=== PATIENT | male | born 1940 | race Caucasian/White ===

== ENCOUNTER 2019-05-17 08:04 | Emergency (ER) | payer MEDICARE, BC ==
[~2019-05-17] VITALS: Ht 180.3 cm; Wt 97.3 kg
[~2019-05-17 08:04] MED LIST: ADV250INH INH; ASPI81CH49 PO; NITR0.4S SL; PLAV1TAB2 PO; PROP60CA PO; RANI-356 PO; SYNT137T7 PO; TYLE325T5 PO; ZETI10TA16 PO
--- NOTE | 2019-05-17 08:45 | REP ---
Right shoulder two views: I suspect a fracture at the humeral neck. Additionally, there is a large avulsion fragment at the humeral head laterally. No dislocation. Demineralization. Electronically Signed by Karson Moreno MD 05/17/2019 08:37 A
--- NOTE | 2019-05-17 08:47 | REP ---
Right elbow two views: I suspect a fracture at the base of the olecranon spur. There is adjacent soft tissue edema. Both views are oblique. No other fractures or dislocations are identified in the two views provided. Electronically Signed by Karson Moreno MD 05/17/2019 08:38 A
--- NOTE | 2019-05-17 08:48 | REP ---
Right humerus two views: There is an impacted fracture of the humeral head with a large a avulsion fragment laterally. No dislocation. Demineralization. Electronically Signed by Karson Moreno MD 05/17/2019 08:39 A
[2019-05-17] MEDS ORDERED: NORCO, ANEXSIA 5/325MG TABLET (HYDROcodone/ACETAMINOPHEN) PO ONE (09:15)
[2019-05-17] MEDS ORDERED: IPRA6SP INH (09:28)
[2019-05-17] MEDS ORDERED: TAMS1CAP17 PO (09:28)
[2019-05-17] MEDS ORDERED: PROP80CA PO (09:28)
[2019-05-17] MEDS ORDERED: NORC1TAB7 PO (10:05)
[2019-05-17] MEDS ORDERED: COLA100C5 PO (10:06)
[2019-05-17 10:19] VITALS: BP 121/71
== END 2019-05-17 10:23 | disposition home or self-care (01) ==
LOC: M ED 08:04
DX: S42.91XA Fracture of right shoulder girdle, part unspecified, initial encounter for closed fracture (principal); S52.024A Nondisplaced fracture of olecranon process without intraarticular extension of right ulna, initial encounter for closed fracture; W01.10XA Fall on same level from slipping, tripping and stumbling with subsequent striking against unspecified object, initial encounter; Y92.099 Unspecified place in other non-institutional residence as the place of occurrence of the external cause; Y93.89 Activity, other specified; Y99.9 Unspecified external cause status; Z95.5 Presence of coronary angioplasty implant and graft; E78.00 Pure hypercholesterolemia, unspecified; I10 Essential (primary) hypertension; E03.9 Hypothyroidism, unspecified; Z79.82 Long term (current) use of aspirin; Z79.899 Other long term (current) drug therapy

== ENCOUNTER → 2020-02-17 | Outpatient (REF) | payer MEDICARE, BC, OTHER ==
[~2020-02-17] MED LIST changes: +COLA100C5 PO; +IPRA6SP INH; +NORC1TAB7 PO; +PROP80CA PO; -RANI-356 PO; +RANI-397 PO; +TAMS1CAP17 PO
[2020-04-07 07:33] LABS: ALBUMIN 3.57 GM/DL (3.29-5.55); ALPHA-1-GLOBULIN % 3.7 % (2.9-4.9); ALPHA-1-GLOBULINS 0.26 GM/DL (0.17-0.41); ALPHA-2-GLOBULINS 0.81 GM/DL (0.42-0.99); ALPHA-2-GLOBULINS % 11.5 % (7.1-11.8); BETA-1-GLOBULINS 1.73 GM/DL (0.28-0.60); BETA-1-GLOBULINS % 24.7 % (4.7-7.2); BETA-2-GLOBULINS 0.27 GM/DL (0.19-0.55); BETA-2-GLOBULINS % 3.9 % (3.2-6.5); GAMMA GLOBULIN % 5.2 % (11.1-18.8); GAMMA GLOBULINS 0.36 GM/DL (0.65-1.58)
== END ==
LOC: M LAB REF 10:44
PROVIDERS: ATTEND Internal Medicine
DX: R93.7 Abnormal findings on diagnostic imaging of other parts of musculoskeletal system (principal)

== ENCOUNTER → 2020-12-08 | Outpatient (REF) | payer MEDICARE, BC, OTHER ==
[2020-12-08 13:13] LABS: IMMUNOGLOBULIN G 1500 MG/DL (681-1648); IMMUNOGLOBULIN M 25.7 MG/DL (40-230); TOTAL PROTEIN 6.8 GM/DL (6.4-8.2)
[2020-12-09 13:43] LABS: ALBUMIN 3.35 GM/DL (3.29-5.55); ALBUMIN % 49.2 % (55.8-66.1); ALPHA-1-GLOBULIN % 3.8 % (2.9-4.9); ALPHA-1-GLOBULINS 0.26 GM/DL (0.17-0.41); ALPHA-2-GLOBULINS 0.78 GM/DL (0.42-0.99); ALPHA-2-GLOBULINS % 11.5 % (7.1-11.8); BETA-1-GLOBULINS 1.79 GM/DL (0.28-0.60); BETA-1-GLOBULINS % 26.3 % (4.7-7.2); BETA-2-GLOBULINS 0.26 GM/DL (0.19-0.55); BETA-2-GLOBULINS % 3.8 % (3.2-6.5); GAMMA GLOBULIN % 5.4 % (11.1-18.8); GAMMA GLOBULINS 0.37 GM/DL (0.65-1.58)
[2020-12-09 13:58] LABS: IMMUNOTYPING SERUM IGG ABNORMAL (NORMAL); IMMUNOTYPING SERUM KAPPA ABNORMAL (NORMAL)
== END ==
LOC: M LAB REF 11:32
PROVIDERS: ATTEND Internal Medicine
DX: D47.2 Monoclonal gammopathy (principal)

== ENCOUNTER → 2020-12-29 | Outpatient (CLI) | payer MEDICARE, BC ==
[~2020-12-29] MED LIST changes: +E-Z-GAS II EFFERVESCENT PACKET (SODIUM BICARB./CITRIC ACID/SIMETHICONE) As Ordered ONE; +E-Z-HD 98% w/w 340GM SUSP BTL As Ordered ONE; +E-Z-PAQUE 96% w/w SUSP 176GM BTL As Ordered ONE
--- NOTE | 2020-12-29 09:28 | REP ---
INDICATION: DYSPHAGIA COMPARISON: Comparison carotid sonography May 10, 2018.. TECHNIQUE: Real-time ultrasound evaluation and duplex Doppler interrogation of the extracranial carotid vasculature is performed. FINDINGS: Antegrade flow is observed in both vertebral arteries. Right carotid: The right common carotid artery shows diffuse intimal thickening but is otherwise unremarkable. There moderate mixed plaquing in the right carotid bulb and proximal ICA on two-dimensional scanning. Color flow and spectral Doppler interrogation are unremarkable on the right. Velocity chart right carotid: Right CCA PSV: 42 cm/S Right ICA PSV: 99 cm/S Right ICA EDV: 24 cm/S Right ECA PSV: 53 cm/S Right ICA/CCA ratio: 2.4 Left carotid: The left common carotid artery shows diffuse intimal thickening but is otherwise unremarkable. There is moderate mixed plaquing in the left carotid bulb and proximal ICA on two-dimensional scanning. Color flow and spectral Doppler interrogation are unremarkable on the left. Velocity chart left carotid: Left CCA PSV: 70 cm/S Left ICA PSV: 74 cm/S Left ICA EDV: 25 cm/S Left ECA PSV: 77 cm/S Left ICA/CCA ratio: 1.1 IMPRESSION: Less than 50% category narrowing in the right internal carotid artery by Doppler velocity criteria. Moderate mixed plaquing. Less than 50% category narrowing in the left ICA by Doppler velocity criteria. Moderate mixed plaquing. Doppler velocities have not increased significantly since the prior study. <Electronically signed by Jsutin Yu > 12/29/20 0968
--- NOTE | 2020-12-29 13:59 | REP ---
INDICATION: Dysphagia. COMPARISON: Upper GI dated 06/16/2017. TECHNIQUE: This procedure was performed by Sena Deluna [facility], under the direct supervision of Dr. Araya. Images were reviewed with Dr. Araya prior to dictation. Liquid barium and gas producing crystals were given in the erect position, as well as liquid barium in the prone oblique position in order to perform a double contrast esophagram examination. FINDINGS: A single view PA chest x-ray is submitted as a fisher eel spear film. The superior mediastinal structures are midline. The heart size is within normal limits. The lungs are clear. The oral and pharyngeal stages of deglutition were unremarkable. Esophageal transport is prompt and efficient, however 2 in fro motility as well as tertiary contractions were visualized multiple times during the exam. There is no evidence of stricture, or mucosal ring. There is no evidence of a hiatal hernia. There was no gastroesophageal reflux noted . IMPRESSION: Presbyesophagus. 0.6 minutes of fluoroscopy time was utilized for this procedure. Some fluoroscopic images are performed with last image hold technology. These images require no additional radiation. <Electronically signed by Sena Deluna > 12/29/20 1241 <Electronically signed by Karson Araya > 12/29/20 [id number]
== END ==
LOC: M RAD 08:29
PROVIDERS: ATTEND Internal Medicine
DX: I65.23 Occlusion and stenosis of bilateral carotid arteries (principal); R13.10 Dysphagia, unspecified; K22.8 Other specified diseases of esophagus

== ENCOUNTER → 2021-04-09 | Outpatient (CLI) | payer MEDICARE, BC ==
[~2021-04-09] MED LIST changes: +BARIUM SULFATE 700 MG TABLET (E-Z-DISK) As Ordered ONE; -E-Z-GAS II EFFERVESCENT PACKET (SODIUM BICARB./CITRIC ACID/SIMETHICONE) As Ordered ONE; -E-Z-HD 98% w/w 340GM SUSP BTL As Ordered ONE; +VARIBAR NECTAR 40% w/v 240ML SUSP BTL As Ordered ONE; +VARIBAR PUDDING 40% w/v 230ML TUBE As Ordered ONE
--- NOTE | 2021-04-09 14:57 | REP ---
INDICATION: R13.10 DYSPHASIA. COMPARISON: None. TECHNIQUE: The procedure was performed by Sena Deluna, [facility], under the direct supervision of Dr. Yu. The procedure was performed with Henrietta Lin from speech pathology present. 5 ml aliquots of thin, pudding, mixed fruit, soft food, hard food and pill consistency barium was administered. FINDINGS: Flash penetration was visualized with thin consistency barium. Again noted was some to and fro motility of the distal esophagus. The detailed report of this examination will be provided by speech pathology. IMPRESSION: Flash penetration with thin consistency barium. A complete report will be provided by speech pathology. Presbyesophagus. 2.2 minutes of fluoroscopy time was utilized for this procedure. Some fluoroscopic images are performed with last image hold technology. These images require no additional radiation <Electronically signed by Sena Deluna > 04/09/21 1224 <Electronically signed by Justin Yu > 04/09/21 8622
== END ==
LOC: M RAD 10:58
PROVIDERS: ATTEND Physician Assistant Medical
DX: R13.10 Dysphagia, unspecified (principal)

== ENCOUNTER → 2021-04-22 | Outpatient (CLI) | payer MEDICARE, BC ==
[~2021-04-22] MED LIST changes: -BARIUM SULFATE 700 MG TABLET (E-Z-DISK) As Ordered ONE; +BREO1INH3; -E-Z-PAQUE 96% w/w SUSP 176GM BTL As Ordered ONE; +FAMO1TAB11; -VARIBAR NECTAR 40% w/v 240ML SUSP BTL As Ordered ONE; -VARIBAR PUDDING 40% w/v 230ML TUBE As Ordered ONE
== END ==
LOC: M LABSMTC 10:16
PROVIDERS: ATTEND Anesthesiology
DX: Z01.812 Encounter for preprocedural laboratory examination (principal); Z20.822 Contact with and (suspected) exposure to COVID-19

== ENCOUNTER 2021-04-27 09:03 | Day surgery (SDC) | payer MEDICARE, BC ==
[~2021-04-27] VITALS: Ht 177.8 cm; Wt 93.9 kg
[~2021-04-27 09:03] MED LIST changes: +LIDOCAINE 2% 100MG/5ML SDV (FOR ANES.) As Ordered ONE; +NS 1,000 ML IV ONE; +fentaNYL 100 MCG/2 ML INJECTION (J3010) As Ordered ONE; +propofoL 200 MG/20 ML VIAL As Ordered ONE
--- OUTSIDE RECORDS SUMMARY | 2021-04-27 09:08 | CCD | Continuity of Care Document ---
Author Author Jamey Reddy MD Organization Unknown Address [address] [address] Phone [phone] Care Team Providers Care Physiological Chemist Name Role Phone giovana Todd MD AUT[facility] [phone] Socrates Reddy JR, MD [facility] Unavailable Rufus Head MD AUTM [phone] [facility] AUTM [phone] [facility] AUTM [phone] Deandre Dawkins DPBarbara AUTM [phone] Problems Active Problems Provider Date Coronary arteriosclerosis Socrates Reddy MD Onset: 05/30 Benign essential hypertension Socrates Reddy MD Onset: 07/30/2010 Hypothyroidism Socrates Reddy MD Onset: 05/30/2011 Abnormal glucose level Socrates Reddy MD Onset: 05/30/20 11 Pure hypercholesterolemia Socrates Reddy MD Onset: 05/30 Essential tremor Socrates Reddy MD Onset: 05/30/2011 Gastroesophageal reflux disease Socrates Reddy MD Onset: 05/30/2011 Essential hypertension Socrates Reddy MD Onset: 05/11/20 15 Essential tremor Socrates Reddy MD Onset: 05/11/2015 Social History Type Date Description Comments Sex Unknown ETOH Use Occasionally consumes beer Tobacco Use Start: Unknown End: Unknown Patient is a former smoker SMOKED FOR 30YRS 1 ITALIA A DAY Allergies, Adverse Reactions, Alerts Active Allergies Reaction Severity Comments Date Lipitor,Pravachol.Lescol,Crestor 05/14/2010 Singulair heart issues per pt 05/15/20 12 Dulera sores in mouth /even rinsed 10/22/2013 Mysoline 11/29/2019 Medications Active Medications SIG Qnty Indications Ordering Provide r Date Tamsulosin HCL 0.4mg Capsules Take 1 Capsule Daily 90caps Meli Roy DO 06/23/2020 Synthroid 150mcg Tablets Take 1 Tablet Daily 90tabs Socrates Reddy MD 06/01/2020 Nitroglycerin 0.4mg Tablets Sub Dissolve 1 Tablet Under Thetongue as Needed For Chest Pain 25tabs Socrates Reddy MD 04/09/2020 Ezetimibe 10mg Tablets take 1 tablet daily 90tabs Socrates Reddy MD 05/19/2019 Ipratropium Nikolai 0.06% Solution use 2 sprays in each nostril 3-4 times daily as needed 45ml Socrates Reddy MD 11/23/2018 Shingrix 50mcg/0.5ML Suspension Re c administer 0.5 milliliters intramuscular, repeat in 2 to 6 months 2units Socrates Reddy MD 11/23/2018 Propranolol HCL ER 80mg Caps ER 24 HR take 1 capsule daily 90caps Socrates Reddy MD 10/10/2018 Breo Ellipta 200-25mcg/Inh Aerosol 1 inhalation daily 90units Socrates Reddy MD 7 Aspirin 81mg Chewtabs 1 po qd Socrates Reddy MD 06/08/2012 Medications Administered in Office Medication SIG Qnty Indications Ordering Provider Date Covid-19 vaccine, Unspecified Inj ection Unknown 08/29/2020 Covid-19 vaccine, Unspecified Inj ection Unknown 08/08/2020 Administration Of Flu Vaccine Inj ectrenetta Reddy MD 05/20/2019 Administration Of Flu Vaccine Inj ection Socrates Reddy MD 05/04/2018 Administration Of Flu Vaccine Inj ection Socrates Reddy MD 05/16/2017 Administration Of Flu Vaccine Inj lula Reddy MD 05/16/2016 Administration Of Flu Vaccine Inj lula Reddy MD 05/11/2015 Administration Of Flu Vaccine Inj lula Reddy MD 05/15/2014 Administration Of Flu Vaccine Inj ection Socrates Deleong,MD 05/07/2013 Administration Of Flu Vaccine Inj lula Reddy MD 04/20/2012 Administration Of Flu Vaccine Inj lula Reddy MD 05/30/2011 Immunizations CPT Code Status Date Vaccine Lot # [id number] Given 05/20/2019 Influenza Vaccin e Quadrivalent Preser/Antibiotic Free Im Use [id number] Given 05/04/2018 Influenza Virus Vaccine, Quadrivalent ([id number]), Derived From 0 Given 05/16/2017 Influenza Vaccin e Quadrivalent Preser/Antibiotic Free Im Use [id number] Q2037 Given 05/16/2016 Fluvirin Virus Vaccine [id number] 01 Q2037 Given 05/11/2015 Fluvirin Virus Vaccine 45628 01 57750 Given 10/20/2014 Prevnar 13 [id number] Q2037 Given 05/15/2014 Fluvirin Virus Vaccine 65857 01 Q2037 Given 05/07/2013 Fluvirin Virus Vaccine [id number] 01 Q2037 Given 04/20/2012 Fluvirin Virus Vaccine 13814 Given 04/20/2012 Zoster Vaccine Q2037 Given 05/30/2011 Fluvirin Virus Vaccine 21304 Given 2010 Pneumovax 23 [id number] Refused 11/23/2018 Tetanus/Diptheria(Td)Toxoids Preservative Free Vital Signs Date Vital Result Comment 12/09/2020 10:22am BP Systolic 130 mmHg BP Diastolic 70 mmHg Height 68 inches 5'8" Weight 216.25 lb BMI (Body Mass Index) 32.9 kg/m2 06/01/2020 2:09pm BP Systolic 105 mmHg BP Diastolic 58 mmHg Heart Rate 56 /min Height 68 inches 5'8" Weight 221.00 lb BMI (Body Mass Index) 33.6 kg/m2 Results Test Acquired Date Facility Test Result H/L Range Note Serum Protein Electrophoresis 12/08/2020 [facility] [address] [place] [address] [phone] Albumin % 49.2 % Low 55.8-66.1 Hnlkf-4-Pwfmmces % 3.8 % Normal 2.9-4.9 Uiehf-9-Sbwdzvupe % 11.5 % Normal 7.1-11.8 Zjva-0-Mlhakqiyx % 26.3 % High 4.7-7.2 Fcye-6-Ytztyfdwu % 3.8 % Normal 3.2-6.5 Gamma Globulin % 5.4 % Low 11.1-18.8 Albumin 3.35 GM/DL Normal 3.29-5.55 Oxlxj-5-Znjskymns 0.26 GM/DL Normal 0.17-0.41 Fctht-2-Adglovsqr 0.78 GM/DL Normal 0.42-0.99 Zvug-7-Iunfsybpc 1.79 GM/DL High 0.28-0.60 Fpfp-0-Ltjtfkllf 0.26 GM/DL Normal 0.19-0.55 Gamma Globulins 0.37 GM/DL Low 0.65-1.58 Total Protein 6.8 GM/DL Normal 6.4-8.2 Spep Interpretation SEE COMMENT Normal 1 Spep Pathologist Review REV'D BY Xavier CHÁVEZ <SEE NOTE> Normal 2 Immunoglobulin G,A,M 12/08/2020 [facility] enter [address] [place] [phone] Immunoglobulin A 101.0 mg/dL Normal 70-400 Immunoglobulin G 1500 mg/dL Normal [phone] Immunoglobulin M 25.7 mg/dL Low 40-230 Immunotyping (Immunofixation) Serum (If 12/08/[address] [address] [phone] Immunotyping Serum Igg ABNORMAL High Normal Immunotyping Serum Crescent ABNORMAL High Normal It Serum Interpretation SEE COMMENT Normal 3 Its Pathologist Review REV'D BY Xavier CHÁVEZ <SEE NOTE> Normal 4 Complete Blood Count 12/08/2020 [facility], [place] Brand Analyst: [place] [address] [phone] WBC 6.4 x10*3/UL 4.1 - 10.9 RBC 4.29 x10*6/UL 4.20 - 6.30 Hemoglobin 14.0 g/dL 12.0 - 18.0 Hematocrit 40.9 % 37.0 - 51.0 MCV 95.2 fL 80.0 - 97.0 MCH 32.7 pg High 26.0 - 32.0 MCHC 34.4 g/dL 31.0 - 38.0 RDW 13.4 % 11.6 - 13.7 PLT 268 x10*3/UL 140 - 440 MPV 8.4 FL 7.8 - 11.0 Lymph % 22.9 % 10.0 - 58.5 Mid % 5.5 % 1.7 - 9.3 Neut % 71.6 % 37.0 - 92.0 Lymph # 1.4 x10*3/UL 0.6 - 4.1 Mid # 0.4 x10*3/UL 0.1 - 0.6 Neut # 4.6 x10*3/UL 2.0 - 7.8 Comprehensive Chem Profile 12/08/2020 [facility], Brand Analyst: [place] [address] [phone] Glucose 92 mg/dL 74 - 99 5 BUN 17 mg/dL 7 - 18 Creatinine 0.9 mg/dL 0.6 - 1.3 Sodium 142 mEq/L 136 - 145 Potassium 4.8 mEq/L 3.5 - 5.1 Chloride 106 mEq/L 98 - 107 Carbon Dioxide 29 mEq/L 21 - 32 Calcium 8.6 mg/dL 8.5 - 10.1 Alk. Phosphatase 103 mg/dL 46 - 116 Total Bilirubin 0.2 mg/dL 0.2 - 1.0 Ast (Sgot) 18 U/L 15 - 37 Alt (SGPT) 28 U/L 12 - 78 Albumin 2.9 g/dL Low 3.4 - 5.0 6 Total Protein 6.5 g/dL 6.4 - 8.2 A/G Ratio 0.81 CALC Low 1.00 - 1.90 GFR >= 60 mL/min >60 GFR >= 60 mL/min >60 7 Laboratory test finding 12/08/2020 [facility], Brand Analyst: [place] [address] [phone] Thyroid Stimulating Hormone 1.24 uIU/mL 0.3 6 - 3.74 Lipid Profile 12/08/2020 [facility] , Brand Analyst: [place] [address] [phone] Cholesterol 181 mg/dL 131 - 200 Triglycerides 152 mg/dL High 30 - 150 HDL Cholesterol 27 mg/dL Low 35 - 60 LDL (Calculated) 124 CALC 50 - 159 1 M-SPIKE NOTED IN BETA 1 GRAEME ON. CONCENTRATION = 1.66 GM/DL 2 REV'D BY Xavier CHAMBERS 3 MONOCLONAL IGG KAPPA 4 REV'D BY Xavier CHAMBERS 5 100-125 mg/dL PRE-DIABET ES/FASTING >126 mg/dL DIABETES/FASTING 6 NOTE: RESULT VERIFIED. 7 CHRONIC KIDNEY DISEASE STAGI NG PER NKF STAGE I & II GFR >= 60 NORMAL TO MILDLY DECREASED STAGE III GFR 30-59 MODERATELY DECREASED STAGE IV GFR 15-29 SEVERELY DECREASED STAGE V GFR <15 VERY LITTLE GFR LEFT ESRD GFR <15 ON STORE FACILITY TECHNICIAN Procedures Date Code Description Status 12/09/2020 66662 Office/Outpatient Established Mo d MDM 30-39 Min Completed 08/13/2008 [id number] Colonoscopy Completed Medical Devices Description No Information Available Encounters Type Date Location Provider Dx Diagnosis Office Visit 12/09/2020 10:40a [facility] 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 I65.23 Occlusion and stenosis of bi lateral carotid arteries D47.2 Monoclonal gammopathy R13.10 Dysphagia, unspecified E66.09 Other obesity due to excess calories Z68.32 Body mass index [BMI] 32.0-3 2.9, adult Z13.89 Encounter for screening for other disorder Assessments Date Code Description Provider 12/09/2020 I10 Essential (primary) hypertension Socrates Reddy MD 12/09/2020 R73.09 Other abnormal glucose Socrates Reddy MD 12/09/2020 E03.9 Hypothyroidism, unspecified Elizabeth esha Reddy MD 12/09/2020 G25.0 Essential tremor Socrates carter MD 12/09/2020 I25.10 Atherosclerotic heart disease of [place] coronary artery with Socrates Reddy MD 12/09/2020 Z95.818 Presence of other cardiac implan ts and grafts Socrates Reddy MD 12/09/2020 I65.23 Occlusion and stenosis of bilate ral carotid arteries Socrates Reddy MD 12/09/2020 D47.2 Monoclonal gammopathy Socrates Reddy MD 12/09/2020 R13.10 Dysphagia, unspecified Socrates Reddy MD 12/09/2020 E66.09 Other obesity due to excess lesly rain Socrates Reddy MD 12/09/2020 Z68.32 Body mass index [BMI] 32.0-32.9, adult Socrates Reddy MD 12/09/2020 Z13.89 Encounter for screening for othe r disorder Socrates Reddy MD 12/08/2020 D47.2 Monoclonal gammopathy Socrates Reddy MD 12/08/2020 D47.2 Monoclonal gammopathy Lab [facility] 12/08/2020 I10 Essential (primary) hypertension Socrates Reddy MD 12/08/2020 I10 Essential (primary) hypertension Lab Schedule 12/08/2020 E78.00 Pure hypercholesterolemia, unspe cified Socrates Reddy MD 12/08/2020 E78.00 Pure hypercholesterolemia, unspe cified Lab Schedule 12/08/2020 E03.9 Hypothyroidism, unspecified Elizabeth esha Reddy MD 12/08/2020 E03.9 Hypothyroidism, unspecified Lab Schedule Plan of Treatment Future Appointment(s):* 06/15/2021 7:40 am - Lab Schedule at [facility] * 06/16/2021 8:20 am - Socrates Reddy MD at [facility] 06/01/2020 - Socrates Reddy MD* I10 Essential (primary) hypertension* Comments:* Hypertension at J[facility]-8 guidelines * R73.09 Other abnormal glucose * E03.9 Hypothyroidism, unspecified * G25.0 Essential tremor * I25.10 Atherosclerotic heart disease of [place] coronary artery with * Z95.818 Presence of other cardiac implants and grafts * I65.23 Occlusion and stenosis of bilateral carotid arteries * D47.2 Monoclonal gammopathy * All * New Medication:* Synthroid 150 mcg - Take 1 Tablet Daily * Synthroid 25 mcg - 1 by mouth every day Functional Status Description No Information Available Mental Status Description No Information Available Referrals Refer to Reason for Referral Status Appt Date Yazan Pickard MD CONSULT FOR SCREENING EGD DX: SOLID [place] D DYSPHAGIA Scheduled 03/19/2021 [facility] Medical Practice [address] [id number] [phone]
--- OUTSIDE RECORDS SUMMARY | 2021-04-27 09:08 | CCD | Continuity of Care Document ---
Author Author Jamey [facility]ERO [facility] Organization Unknown Address [address] [place] [address], [address] [place] [address] Phone [phone] Care Team Providers Care Petroleum Production Engineer Name Role Phone Socrates Reddy MD @ [facility] Int AUTM Problems Active Problems Provider Date Chronic rhinitis Jesse Ha MD Onset: 11/04/2013 Chronic pansinusitis Jesse Ha MD Onset: 11/04/2013 Benign paroxysmal positional vertigo Jesse Ha MD Ons et: 09/19/2014 Refractory migraine Jesse Ha MD Onset: 09/19/2014 Sensorineural hearing loss, bilateral Jesse Ha MD On set: 09/19/2014 Social History Type Date Description Comments Sex Unknown ETOH Use 2 A Month Tobacco Use Start: Unknown End: Unknown Patient is a former smoker Allergies, Adverse Reactions, Alerts Active Allergies Criticality Reaction | Severity Comments Date Lipitor Unable to assess criticality 02/19/2021 Pravachol Unable to assess criticality 02/19/2021 Lescol Unable to assess criticality 02/19/2021 Crestor Unable to assess criticality 02/19/2021 Singulair Unable to assess criticality 02/19/2021 Dulera Unable to assess criticality 02/19/2021 Inactive Allergies NKDA Unable to assess criticality 10/29/2013 Medications Active Medications SIG Qnty Indications Ordering Provide r Date Famotidine 20mg Tablets take 1 tab by mouth twice daily for heartburn 60tabs K21.9 Yazan Pickard MD 03/19/2021 Synthroid 150mcg Tablets 1 po qd 30tabs Unknown Propranolol HCL ER 80mg Caps ER 24 HR 1 po bid 90caps Unknown Aspir-Low 81mg Tablets DR lanette mayer Unknown Tamsulosin HCL 0.4mg Capsules 1 by mouth every day Unknown Ezetimibe 10mg Tablets 1 by mouth every day Unknown Multivitamin Tablets 1 by mouth every day Unknown Breo Ellipta 200-25mcg/Inh Aerosol inhale one puff by mouth every day Unknown Tums 500mg Chewtabs 1 tab by mouth as needed Unknown Immunizations Description No Information Available Vital Signs Date Vital Result Comment 03/19/2021 9:30am BP Systolic 132 mmHg BP Diastolic 82 mmHg Height 70 inches 5'10" Weight 207.00 lb BMI (Body Mass Index) 29.7 kg/m2 [place] Body Weight 166 lb Weight 93.895 kg BSA (Body Surface Area) 2.12 m2 09/19/2014 8:09am BP Systolic 142 mmHg BP Diastolic 82 mmHg Heart Rate 56 /min Height 71 inches 5'11" Weight 209.00 lb BMI (Body Mass Index) 29.1 kg/m2 [place] Body Weight 172 lb Weight 94.802 kg BSA (Body Surface Area) 2.15 m2 Results Description No Information Available Procedures Date Code Description Status 03/19/2021 [address]321 Office/Outpatient New Moderate M DM 45-59 Minutes Completed Medical Devices Description No Information Available Encounters Type Date Location Provider Dx Diagnosis Office Visit 03/19/2021 9:30a [facility] ctice ISAI Robert K21.9 Gastro-esophageal reflux dis ease without esophagitis R13.10 Dysphagia, unspecified Assessments Date Code Description Provider 03/19/2021 K21.9 Gastro-esophageal reflux disease without esophagitis ISAI Robert 03/19/2021 R13.10 Dysphagia, unspecified ISAI Robert Plan of Treatment Future Appointment(s):* 05/10/2021 10:00 am - ISAI Robert at [facility] * 04/27/2021 10:05 am - Marvel Meyer M.D. at [facility] 03/19/2021 - Leydi A Charlebois, RPA-C* K21.9 Gastro-esophageal reflux disease without esophagitis * R13.10 Dysphagia, unspecified * * New Medication:* Famotidine 20 mg * New Orders:* Endoscopy with possible dilation, Ordered: 03/19/21 * Comments:* Will arrange for upper endoscopy and possible dilation. Reviewed risks and benefits of the procedure, as well as other options, with the patient. Prep for this procedure was discussed with patient. Patient verbalized understanding of all of the above and is in agreement to proceed. Patient will seek medical attention for any acute changes. Will monitor. * Follow up:* 2 weeks after procedure, sooner if needed. Functional Status Description No Information Available Mental Status Description No Information Available Referrals Refer to Dr Reason for Referral Status Appt Date Marvel Meyer M.D. DYSPHAGIA Scheduled 03/19 [facility] [address] [facility], [address] [place] [id number] [phone]
--- OUTSIDE RECORDS SUMMARY | 2021-04-27 09:08 | CCD ---
Author Author [facility] Organization [facility] Address Unknown Phone Unavailable Care Team Providers Care [place] Auditor Name Role Phone Rodriguez, Dorothea ORDNANCE EQUIPMENT WORKER Unavailable Unavailable Rodriguez, Dorothea ORDNANCE EQUIPMENT WORKER Unavailable Unavailable Rodriguez, Dorothea ORDNANCE EQUIPMENT WORKER Unavailable Unavailable Rodriguez, Dorothea ORDNANCE EQUIPMENT WORKER Unavailable Unavailable Rodriguez, Dorothea ORDNANCE EQUIPMENT WORKER Unavailable Unavailable Rodriguez, Dorothea ORDNANCE EQUIPMENT WORKER Unavailable Unavailable Rodriguez, Dorothea ORDNANCE EQUIPMENT WORKER Unavailable Unavailable Rodriguez, Dorothea ORDNANCE EQUIPMENT WORKER Unavailable Unavailable Rodriguez, Dorothea ORDNANCE EQUIPMENT WORKER Unavailable Unavailable Rodriguez, Dorothea ORDNANCE EQUIPMENT WORKER Unavailable Unavailable Rodriguez, Dorothea ORDNANCE EQUIPMENT WORKER Unavailable Unavailable Rodriguez, Dorothea ORDNANCE EQUIPMENT WORKER Unavailable Unavailable Rodriguez, Dorothea ORDNANCE EQUIPMENT WORKER Unavailable Unavailable Charlebois, A Leydi RPA C Unavailable Unavailable Charlebois, A Leydi RPA C Unavailable Unavailable Charlebois, A Leydi RPA C Unavailable Unavailable Charlebois, A Leydi RPA C Unavailable Unavailable Charlebois, A Leydi RPA C Unavailable Unavailable Charlebois, A Leydi RPA C Unavailable Unavailable Charlebois, A Leydi RPA C Unavailable Unavailable Charlebois, A Leydi RPA C Unavailable Unavailable Charlebois, A Leydi RPA C Unavailable Unavailable Charlebois, A Leydi RPA C Unavailable Unavailable Charlebois, A Leydi RPA C Unavailable Unavailable Charlebois, A Leydi RPA C Unavailable Unavailable Charlebois, A Leydi RPA C Unavailable Unavailable Charlebois, A Leydi RPA C Unavailable Unavailable Charlebois, A Leydi RPA C Unavailable Unavailable Charlebois, A Leydi RPA C Unavailable Unavailable Charlebois, A Leydi RPA C Unavailable Unavailable Charlebois, A Leydi RPA C Unavailable Unavailable Charlebois, A Leydi RPA C Unavailable Unavailable Charlebois, A Leydi RPA C Unavailable Unavailable Charlebois, A Leydi RPA C Unavailable Unavailable Charlebois, A Leydi RPA C Unavailable Unavailable Charlebois, A Leydi RPA C Unavailable Unavailable Charlebois, A Leydi RPA C Unavailable Unavailable Charlebois, A Leydi RPA C Unavailable Unavailable Charlebois, A Leydi RPA C Unavailable Unavailable Charlebois, A Leydi RPA C Unavailable Unavailable Charlebois, A Leydi RPA C Unavailable Unavailable Charlebois, A Leydi RPA C Unavailable Unavailable Charlebois, A Leydi RPA C Unavailable Unavailable Charlebois, A Leydi RPA C Unavailable Unavailable Charlebois, A Leydi RPA C Unavailable Unavailable Charlebois, A Leydi RPA C Unavailable Unavailable PICKERAL JR, J CARISSA PA-C Unavailable Unavailable PICKERAL JR, J CARISSA PA-C Unavailable Unavailable PICKERAL JR, J CARISSA PA-C Unavailable Unavailable PICKERAL JR, J CARISSA PA-C Unavailable Unavailable PICKERAL JR, J CARISSA PA-C Unavailable Unavailable PICKERAL JR, J CARISSA PA-C Unavailable Unavailable PICKERAL JR, J CARISSA PA-C Unavailable Unavailable PICKERAL JR, J CARISSA PA-C Unavailable Unavailable PICKERAL JR, J CARISSA PA-C Unavailable Unavailable PICKERAL JR, J CARISSA PA-C Unavailable Unavailable PICKERAL JR, J CARISSA PA-C Unavailable Unavailable PICKERAL JR, J CARISSA PA-C Unavailable Unavailable PICKERAL JR, J CARISSA PA-C Unavailable Unavailable PICKERAL JR, J CARISSA PA-C Unavailable Unavailable PICKERAL JR, J CARISSA PA-C Unavailable Unavailable PICKERAL JR, J CARISSA PA-C Unavailable Unavailable PICKERAL JR, J CARISSA PA-C Unavailable Unavailable PICKERAL JR, J CARISSA PA-C Unavailable Unavailable PICKERAL JR, J CARISSA PA-C Unavailable Unavailable PICKERAL JR, J CARISSA PA-C Unavailable Unavailable PICKERAL JR, J CARISSA PA-C Unavailable Unavailable PICKERAL JR, J CARISSA PA-C Unavailable Unavailable PICKERAL JR, J CARISSA PA-C Unavailable Unavailable PICKERAL JR, J CARISSA PA-C Unavailable Unavailable PICKERAL JR, J CARISSA PA-C Unavailable Unavailable PICKERAL JR, J CARISSA PA-C Unavailable Unavailable PICKERAL JR, J CARISSA PA-C Unavailable Unavailable Rancho MirageMitchel MD Unavailable Unavailable Rancho MirageMitchel MD Unavailable Unavailable Rancho MirageMitchel MD Unavailable Unavailable Rancho MirageMitchel MD Unavailable Unavailable BarryMitchel MD Unavailable Unavailable Rancho MirageMitchel MD Unavailable Unavailable Rancho MirageMitchel MD Unavailable Unavailable Rancho MirageMitchel MD Unavailable Unavailable BarryMitchel MD Unavailable Unavailable BarryMitchel MD Unavailable Unavailable BarryMitchel MD Unavailable Unavailable BarryMitchel MD Unavailable Unavailable Rancho MirageMitchel MD Unavailable Unavailable BarryMitchel MD Unavailable Unavailable Rancho MirageMitchel MD Unavailable Unavailable BarryMitchel MD Unavailable Unavailable Rancho MirageMitchel MD Unavailable Unavailable BarryMitchel MD Unavailable Unavailable Rancho MirageMitchel MD Unavailable Unavailable BarryMitchel MD Unavailable Unavailable BarryMitchel MD Unavailable Unavailable BarryMitchel MD Unavailable Unavailable Rancho MirageMitchel MD Unavailable Unavailable BarryMitchel MD Unavailable Unavailable BarryMitchel MD Unavailable Unavailable Rancho MirageMitchel MD Unavailable Unavailable BarryMitchel MD Unavailable Unavailable BarryMitchel MD Unavailable Unavailable Rancho MirageMitchel MD Unavailable Unavailable BarryMitchel MD Unavailable Unavailable Rancho MirageMitchel MD Unavailable Unavailable BarryMitchel MD Unavailable Unavailable BarryMitchel MD Unavailable Unavailable BarryMitchel MD Unavailable Unavailable Rancho MirageMitchel MD Unavailable Unavailable BarryMitchel MD Unavailable Unavailable Rancho MirageMitchel MD Unavailable Unavailable Rancho MirageMitchel MD Unavailable Unavailable Rancho MirageMitchel MD Unavailable Unavailable BarryMitchel MD Unavailable Unavailable Rancho MirageMitchel MD Unavailable Unavailable Rancho MirageMitchel MD Unavailable Unavailable BarryMitchel MD Unavailable Unavailable BarryMitchel MD Unavailable Unavailable BarryMitchel MD Unavailable Unavailable BarryMitchel MD Unavailable Unavailable Rancho MirageMitchel MD Unavailable Unavailable BarryMitchel MD Unavailable Unavailable BarryMitchel MD Unavailable Unavailable BarryMitchel MD Unavailable Unavailable Rancho MirageMitchel MD Unavailable Unavailable Rancho MirageMitchel MD Unavailable Unavailable Rancho MirageMitchel MD Unavailable Unavailable [place], F Crowell MD Unavailable Unavailable Barry, F Crowell MD Unavailable Unavailable Barry, F Crowell MD Unavailable Unavailable Barry, F Crowell MD Unavailable Unavailable Barry, F Crowell MD Unavailable Unavailable [place], F Crowell MD Unavailable Unavailable [place], F Crowell MD Unavailable Unavailable Barry, F Crowell MD Unavailable Unavailable [place], F Crowell MD Unavailable Unavailable [place], F Crowell MD Unavailable Unavailable [place], F Crowell MD Unavailable Unavailable Barry, F Crowell MD Unavailable Unavailable Barry, F Crowell MD Unavailable Unavailable [place], F Crowell MD Unavailable Unavailable Barry, F Crowell MD Unavailable Unavailable [place], F Crowell MD Unavailable Unavailable Barry, F Crowell MD Unavailable Unavailable [place], F Crowell MD Unavailable Unavailable Barry, F Crowell MD Unavailable Unavailable Barry, F Crowell MD Unavailable Unavailable [place], F Crowell MD Unavailable Unavailable [place], F Crowell MD Unavailable Unavailable [place], F Crowell MD Unavailable Unavailable [place], F Crowell MD Unavailable Unavailable [place], F Crowell MD Unavailable Unavailable [place], F Crowell MD Unavailable Unavailable Barry, F Crowell MD Unavailable Unavailable Barry, F Crowell MD Unavailable Unavailable Barry, F Crowell MD Unavailable Unavailable Barry, F Crowell MD Unavailable Unavailable [place], F Crowell MD Unavailable Unavailable [place], F Crowell MD Unavailable Unavailable [place], F Crowell MD Unavailable Unavailable Re-disclosure Warning The records that you are about to access may contain information from federally-assisted alcohol or drug abuse programs. If such information is present, then the following federally mandated warning applies: This information has been disclosed to you from records protected by federal confidentiality rules (42 CFR part 2). The federal rules prohibit you from making any further disclosure of this information unless further disclosure is expressly permitted by the written consent of the person to whom it pertains or as otherwise permitted by 42 CFR part 2. A general authorization for the release of medical or other information is NOT sufficient for this purpose. The Federal rules restrict any use of the information to criminally investigate or prosecute any alcohol or drug abuse patient.The records that you are about to access may contain highly sensitive health information, the redisclosure of which is protected by Article 27-F of the [place] State Public Health law. If you continue you may have access to information: Regarding HIV / AIDS; Provided by facilities licensed or operated by the [facility] Office of Mental Health; or Provided by the [facility] Office for People With Developmental Disabilities. If such information is present, then the following [facility] mandated warning applies: This information has been disclosed to you from confidential records which are protected by state law. State law prohibits you from making any further disclosure of this information without the specific written consent of the person to whom it pertains, or as otherwise permitted by law. Any unauthorized further disclosure in violation of state law may result in a fine or correction sentence or both. A general authorization for the release of medical or other information is NOT sufficient authorization for further disc losure. Allergies and Adverse Reactions Type Description Substance Reaction Status Data Source(s ) Drug Allergy Drug Allergy NKDA [facility] ([facility], ) Family History Family Member Name Family Member Gender Family Member Status Date o f Status Description Data Source(s) Unknown Male Problem [facility] ([facility] Unknown Female Encounters Encounter Providers Location Date Indications Data Source(s ) Outpatient Attender: Leydi Fofana/Dilcia/Clotilde middleton/Neeraj 03/19/2021 09:30:00 AM EDT [facility] ([facility], ) Outpatient Attender: Socrates Donovan 0 12/09/2020 10:40:00 AM EDT [facility] ([facility] ) Outpatient Attender: Dorothea jeter 06/25/2020 08:30:00 AM EST [facility] ([facility] Outpatient Attender: Socrates Donovan 1 08/01/2019 01:00:00 PM EST [facility] ([facility] ) Outpatient Attender: CARISSA Donovan 0 03/17/2020 08:20:00 AM EDT [facility] ([facility] ) Immunizations Vaccine Date Status Description Data Source(s) COVID-19 VACC, MRNA(PFIZER)/PF 04/23/2021 12:00:00 AM EDT completed [facility] COVID-19 VACCINE Pfizer 04/23/2021 12:00:00 AM EDT completed [facility] Vaccine Series Complete: YESThis Data wa s Submitted to [facility] [employer]. COVID-19 VACCINE Pfizer 08/29/2020 12:00:00 AM EST completed [facility] Vaccine Series Complete: YESThis Data wa s Submitted to [facility] [employer]. COVID-19 VACCINE, MRNA, [id number], LNP-S (PFIZER)/PF 08/29/19 12:00:00 AM EST completed [facility] COVID-19 VACCINE Pfizer 08/08/2020 12:00:00 AM EST completed [facility] Vaccine Series Complete: NOThis Data was Submitted to [facility] [employer]. COVID-19 VACCINE, MRNA, [id number], LNP-S (PFIZER)/PF 08/08/19 12:00:00 AM EST completed [facility] Medications Medication Brand Name Start Date Product Form Dose Route Admi nistrative Instructions Pharmacy Instructions Status Indications Reaction Description Data Source(s) Famotidine 20 MG Oral Tablet Famotidine 03/19/2021 12:00:00 AM EDT ORAL active [facility] ([facility], ) ciclopirox 80 MG/ML Topical Solution Ciclopirox 10/27/2020 12:00:00 A M EDT active [facility] ([facility] Covid-19 vaccine, Unspecified 08/29/2020 12:00:00 AM EST completed [facility] Medication administered onsite Covid-19 vaccine, Unspecified 08/08/2020 12:00:00 AM EST completed [facility] Medication administered onsite Tamsulosin hydrochloride 0.4 MG Oral Capsule Tamsulosin HCL 06/23/2020 12:00:00 AM EST active [facility] Levothyroxine Sodium 0.025 MG Oral Tablet [Synthroid] Synthr oid 06/01/2020 12:00:00 AM EST ORAL active M [facility] ([facility]) Levothyroxine Sodium 0.15 MG Oral Tablet [Synthroid] Synthro id 06/01/2020 12:00:00 AM EST active M [facility] ([facility]) Nitroglycerin 0.4 MG Sublingual Tablet Nitroglycerin 0 12:00:00 AM EDT active [facility] ( [facility]) Insurance Providers Payer name Policy type / Coverage type Policy ID Covered constitution party ID Covered constitution party's relationship to obrien Policy Obrien Plan Information Utilities [place] [employer] Compensation [id number] Self [id number] [place] [place] B [id number] Self [id number] [place] [place] B [id number] Self X [id number] Medicare Natl Govt Servic Medicare Primary [id number] Self 0 [id number] [employer] BCBS [id number] Janeen XXP [id number] MEDICARE [id number] Janeen [id number] A Medicare Natl Govt Servic Medicare Primary [id number] Self 6 [id number] MEDICARE [id number] SP [id number] [id number] MEDICARE [id number] SP [id number] A Medicare Natl Govt Servic Medicare Primary [id number] Self 6 [id number] Medicare Natl Govt Servic Medicare Primary [id number] Self 6 [id number] BLUE CARD 1 [id number] 1 [id number] MEDICARE C [id number] S [id number] A [employer] o Health Maintenance Organization (HMO) [id number] Self X [id number] BS [facility] [id number] 00 [id number] Self X [id number] 00 [employer] Ppo Health Maintenance Organization (HMO) [id number] Self X [id number] BS [facility] [id number] 00 [id number] Self X [id number] 00 BC/BS Of [facility] Part B [id number] Self Medicare [place] Primary [id number] Self BC OUT OF STATE 1 [id number] 1 [id number] CIGNA-IND INACTIVE 2 [id number] 1 0 [id number] BCBS OF [place] 200/700 [id number] SP [id number] SELF PAY 5 UNAVAILABLE 1 UNAVAILA BLE BCBS [place] 200/700 [id number] SP [id number] OTHER WORKERS COMPENSATION [id number] SP [id number] MEDICARE C [id number] S [id number] [employer] BCBS B [id number] S XXP [id number] BCBS [place] 200/700 [id number] SP [id number] Medicare Medicare Primary [id number] Self [id number] [employer] Ppo Health Maintenance Organization (HMO) [id number] Self X [id number] BS [facility] [id number] 00 [id number] Self X [id number] 00 [employer] Ppo Health Maintenance Organization ([facility]) [id number] Self X [id number] [facility] Commercial [id number] 00 [id number] Self X [id number] 00 Medicare Medicare Primary [id number] Self [id number] Problems, Conditions, and Diagnoses No Information Surgeries/Procedures Procedure Description Date Indications Data Source(s) OFFICE OUTPATIENT NEW 45 MINUTES 03/19/2021 12:00:00 A M EDT [facility] ([facility], ) DEBRIDEMENT NAIL ANY METHOD 03/16/2021 12:00:00 AM EDT [facility] ([facility] DEBRIDEMENT NAIL ANY METHOD 01/05/2021 12:00:00 AM EDT [facility] ([facility] OFFICE OUTPATIENT VISIT 25 MINUTES 12/09/2020 12:00:00 AM EDT [facility] ([facility] DEBRIDEMENT NAIL ANY METHOD 10/27/2020 12:00:00 AM EDT [facility] ([facility] DEBRIDEMENT NAIL ANY METHOD 05/27/2020 12:00:00 AM EST [facility] ([facility] DEBRIDEMENT NAIL ANY METHOD 03/18/2020 12:00:00 AM EDT [facility] ([facility] Results ID Date Data Source [id number] 12/08/2020 07:55:00 AM EDT [facility] ([facility] Name Value Range Interpretation Code Description Data Paula rce(s) Supporting Document(s) Immunotyping Serum Igg Laboratory test result [facility] ([facility]) It Serum Interpretation Laboratory test result [facility] ([facility]) MONOCLONAL IGG KAPPA Immunotyping Serum Athelstan Laboratory test result [facility] ([facility]) Laboratory test finding (navigational concept) Laboratory test result [facility] ([facility]) REV'D BY Xavier CHAMBERS ID Date Data Source [id number] 12/08/2020 07:55:00 AM EDT [facility] ([facility]) Name Value Range Interpretation Code Description Data Paula rce(s) Supporting Document(s) Immunoglobulin A 101.0 mg/dL 70-400 [facility] ([facility]) Immunoglobulin G 1500 mg/dL [id number] [facility] ([facility]) Immunoglobulin M 25.7 mg/dL 40-230 [facility] ([facility]) ID Date Data Source [id number] 12/08/2020 07:55:00 AM EDT [facility] ([facility]) Name Value Range Interpretation Code Description Data Paula rce(s) Supporting Document(s) Albumin % 49.2 % 55.8-66.1 [facility]) Bfqlg-9-Rvmyvqxr % 3.8 % 2.9-4.9 [facility] ([facility]) Fcpv-2-Fzuavauxe % 26.3 % 4.7-7.2 [facility] ([facility]) Lygdp-7-Ytwpmtnma % 11.5 % 7.1-11.8 [facility] ([facility]) Hktb-7-Upswmnfgy % 3.8 % 3.2-6.5 [facility] ([facility]) Gamma Globulin % 5.4 % 11.1-18.8 [facility] ([facility]) Ylydo-7-Tojaufhqo 0.26 GM/DL 0.17-0.41 [facility] ([facility]) Albumin 3.35 GM/DL 3.29-5.55 [facility] Oopqi-7-Yhnonbhfq 0.78 GM/DL 0.42-0.99 [facility] ([facility]) Pffc-1-Byxwzonon 1.79 GM/DL 0.28-0.60 [facility] ([facility]) Vkmw-7-Qcfvagyus 0.26 GM/DL 0.19-0.55 [facility] ([facility]) Gamma Globulins 0.37 GM/DL 0.65-1.58 [facility] ([facility]) Total Protein 6.8 GM/DL 6.4-8.2 [facility] ([facility]) Laboratory test finding (navigational concept) Laboratory test result [facility] ([facility]) REV'D BY Xavier Whitfield Interpretation Laboratory test result [facility] ([facility]) M-SPIKE NOTED IN BETA 1 REGION. CONCENTRATION = 1.66 GM/DL ID Date Data Source [id number] 12/08/2020 07:55:00 AM EDT [facility] ([facility]) Name Value Range Interpretation Code Description Data Paula rce(s) Supporting Document(s) Protein Fractions [Interpretation] in Serum or Plasma by Immunofixation Laboratory test result [facility] ([facility]) ID Date Data Source [id number] 12/08/2020 07:52:00 AM EDT [facility] ([facility]) Name Value Range Interpretation Code Description Data Paula rce(s) Supporting Document(s) Cholesterol [Mass/volume] in Serum or Plasma 181 mg/dL 131-200 [facility] ([facility]) Triglyceride [Mass/volume] in Serum or Plasma 152 mg/dL 30-150 [facility] ([facility]) Cholesterol in HDL [Mass/volume] in Serum or Plasma 27 mg/dL 35-60 [facility] ([facility]) Cholesterol in LDL [Mass/volume] in Serum or Plasma by calcu lation 124 CALC 50-159 [facility] ([facility]) ID Date Data Source [id number] 12/08/2020 07:52:00 AM EDT [facility] ([facility]) Name Value Range Interpretation Code Description Data Paula rce(s) Supporting Document(s) Thyrotropin [Units/volume] in Serum or Plasma by Detec tion limit <= 0.05 mIU/L 1.24 uIU/mL 0.36-3.74 [facility] ([facility] ) ID Date Data Source [id number] 12/08/2020 07:52:00 AM EDT [facility] ([facility]) Name Value Range Interpretation Code Description Data Paula rce(s) Supporting Document(s) Glucose [Mass/volume] in Serum or Plasma 92 mg/dL 74-99 [facility] ([facility]) 100-125 mg/dL PRE-DIABETES/FASTING >126 mg/dL DIABETES/FASTING Urea nitrogen [Mass/volume] in Serum or Plasma 17 mg/dL 7-18 [facility] ([facility]) Creatinine 0.9 mg/dL 0.6-1.3 [facility] ([facility]) Sodium [Moles/volume] in Serum or Plasma 142 meq/L 136-145 [facility] ([facility]) Chloride [Moles/volume] in Serum or Plasma 106 meq/L 98-107 [facility] ([facility]) Potassium [Moles/volume] in Serum or Plasma 4.8 meq/L 3.5-5.1 [facility] ([facility]) Carbon dioxide, total [Moles/volume] in Serum or Plasma 29 meq/L 21 -32 [facility] ([facility]) Calcium [Mass/volume] in Serum or Plasma 8.6 mg/dL 8.5-10.1 [facility] ([facility]) Alkaline phosphatase isoenzyme [Units/volume] in Serum or Pl asma 103 mg/dL 46-116 [facility] ([facility]) Total Bilirubin 0.2 mg/dL 0.2-1.0 [facility] ([facility]) Aspartate aminotransferase [Enzymatic activity/volume] in Serum or Plasma 18 U/L 15-37 [facility] ([facility] ) Alanine aminotransferase [Enzymatic activity/volume] in Seru m or Plasma 28 U/L 12-78 [facility] ([facility]) Albumin [Mass/volume] in Serum or Plasma 2.9 g/dL 3.4-5.0 [facility] ([facility]) NOTE: RESULT VERIFIED. A/G Ratio 0.81 CALC 1.00-1.90 [facility] Proteinase 3 Ab [Units/volume] in Serum 6.5 g/dL 6.4-8.2 [facility] ([facility]) Glomerular filtration rate/1.73 sq M pre dicted among non-blacks [Volume Rate/Area] in Serum or Plasma by Creatinine-based formula (MDRD) [facility] Glomerular filtration rate/1.73 sq M pre dicted among blacks [Volume Rate/Area] in Serum or Plasma by Creatinine-based formula (MDRD) Laboratory test result [facility] <content>CHRONIC KIDNEY DISEASE STAGING PER NKF</content>
<content></content>
<content>STAGE I & II GFR >= 60 NORMAL TO MILDLY DECREASED</content>
<content>STAGE III GFR 30-59 MODERATELY DECREASED</content>
<content>STAGE IV GFR 15-29 SEVERELY DECREASED</content>
<content>STAGE V GFR <15 VERY LITTLE GFR LEFT</content>
<content>ESRD GFR <15 ON CAMERA PROTOTYPING ENGINEER</content>
<content></content> ID Date Data Source [id number] 12/08/2020 07:52:00 AM EDT [facility] Name Value Range Interpretation Code Description Data Paula rce(s) Supporting Document(s) Leukocytes [#/volume] in Blood by Automated count 6.4 x10*3/UL 4.1-10 .9 [facility] Erythrocytes [#/volume] in Blood by Automated count 4.29 x10*6/UL 4.2 0-6.30 [facility] Hemoglobin [Mass/volume] in Blood 14.0 g/dL 12.0-18.0 [facility] ([facility]) Hematocrit [Volume Fraction] of Blood by Automated count 40.9 % 3 7.0-51.0 [facility] MCV 95.2 fL 80.0-97.0 [facility] MCH 32.7 pg 26.0-32.0 [facility] [facility]) MCHC 34.4 g/dL 31.0-38.0 [facility] ([facility]) Erythrocyte distribution width [Ratio] by Automated count 13.4 % 11.6-13.7 [facility] ([facility]) Platelets [#/volume] in Blood by Automated count 268 x10*3/UL 140-440 [facility] ([facility]) MPV 8.4 FL 7.8-11.0 [facility]) Lymph % 22.9 % 10.0-58.5 [facility]) Neut % 71.6 % 37.0-92.0 [facility] Mid % 5.5 % 1.7-9.3 [facility] Mid # 0.4 x10*3/UL 0.1-0.6 [facility] ([facility]) Lymph # 1.4 x10*3/UL 0.6-4.1 [facility] ([facility]) Neut # 4.6 x10*3/UL 2.0-7.8 [facility] ([facility]) ID Date Data Source [id number] 06/25/2020 12:00:00 AM EST [facility] Name Value Range Interpretation Code Description Data Paula rce(s) Supporting Document(s) SARS coronavirus 2 Ag [facility] This lab was ordered by [facility] and reported by [facility]. ID Date Data Source [id number] 06/01/2020 08:10:00 AM EST [facility] ([facility]) Name Value Range Interpretation Code Description Data Paula rce(s) Supporting Document(s) Thyroxine (T4) free [Mass/volume] in Serum or Plasma 0.88 ng/dL 0.76- 1.46 [facility] ([facility]) ID Date Data Source [id number] 06/01/2020 08:09:00 AM EST [facility] ([facility]) Name Value Range Interpretation Code Description Data Paula rce(s) Supporting Document(s) Thyrotropin [Units/volume] in Serum or Plasma by Detec tion limit <= 0.05 mIU/L 8.84 uIU/mL 0.36-3.74 [facility] ([facility] ) ID Date Data Source [id number] 06/01/2020 08:09:00 AM EST [facility] ([facility]) Name Value Range Interpretation Code Description Data Paula rce(s) Supporting Document(s) Triglyceride [Mass/volume] in Serum or Plasma 165 mg/dL 30-150 [facility] ([facility]) Cholesterol [Mass/volume] in Serum or Plasma 203 mg/dL 131-200 [facility] ([facility]) Cholesterol in HDL [Mass/volume] in Serum or Plasma 31 mg/dL 35-60 [facility] ([facility]) Cholesterol in LDL [Mass/volume] in Serum or Plasma by calcu lation 139 CALC 50-159 [facility] ([facility]) ID Date Data Source [id number] 06/01/2020 08:09:00 AM EST [facility] ([facility]) Name Value Range Interpretation Code Description Data Paula rce(s) Supporting Document(s) Urea nitrogen [Mass/volume] in Serum or Plasma 13 mg/dL 7-18 [facility] ([facility]) Glucose [Mass/volume] in Serum or Plasma 108 mg/dL 74-99 [facility] ([facility]) 100-125 mg/dL PRE-DIABETES/FASTING >126 mg/dL DIABETES/FASTING Creatinine 1.0 mg/dL 0.6-1.3 [facility]) Chloride [Moles/volume] in Serum or Plasma 104 meq/L 98-107 [facility] ([facility]) Sodium [Moles/volume] in Serum or Plasma 140 meq/L 136-145 [facility] ([facility]) Potassium [Moles/volume] in Serum or Plasma 4.9 meq/L 3.5-5.1 [facility] ([facility]) Alkaline phosphatase isoenzyme [Units/volume] in Serum or Pl asma 79 mg/dL 46-116 [facility] ([facility]) Calcium [Mass/volume] in Serum or Plasma 9.3 mg/dL 8.5-10.1 [facility] ([facility]) Carbon dioxide, total [Moles/volume] in Serum or Plasma 29 meq/L 21 -32 [facility] ([facility]) Alanine aminotransferase [Enzymatic activity/volume] in Seru m or Plasma 28 U/L 12-78 [facility] ([facility]) Total Bilirubin 0.4 mg/dL 0.2-1.0 [facility] ([facility]) Aspartate aminotransferase [Enzymatic activity/volume] in Serum or Plasma 21 U/L 15-37 [facility] ([facility] ) Albumin [Mass/volume] in Serum or Plasma 3.2 g/dL 3.4-5.0 [facility] ([facility]) NOTE: ALBUMIN,TSH VERIFIED Glomerular filtration rate/1.73 sq M pre dicted among non-blacks [Volume Rate/Area] in Serum or Plasma by Creatinine-based formula (MDRD) Laboratory test result [facility] Proteinase 3 Ab [Units/volume] in Serum 6.9 g/dL 6.4-8.2 [facility] ([facility]) A/G Ratio 0.86 CALC 1.00-1.90 [facility]) Glomerular filtration rate/1.73 sq M pre dicted among blacks [Volume Rate/Area] in Serum or Plasma by Creatinine-based formula (MDRD) Laboratory test result [facility] <content>CHRONIC KIDNEY DISEASE STAGING PER NKF</content>
<content></content>
<content>STAGE I & II GFR >= 60 NORMAL TO MILDLY DECREASED</content>
<content>STAGE III GFR 30-59 MODERATELY DECREASED</content>
<content>STAGE IV GFR 15-29 SEVERELY DECREASED</content>
<content>STAGE V GFR <15 VERY LITTLE GFR LEFT</content>
<content>ESRD GFR <15 ON [employer]ER[employer] PROTOTYPING ENGINEER</content>
<content></content> ID Date Data Source [id number] 06/01/2020 08:09:00 AM EST [facility] ([facility]) Name Value Range Interpretation Code Description Data Paula rce(s) Supporting Document(s) Leukocytes [#/volume] in Blood by Automated count 6.2 x10*3/UL 4.1-10 .9 [facility] ([facility]) Hemoglobin [Mass/volume] in Blood 14.2 g/dL 12.0-18.0 [facility] ([facility]) MCV 96.8 fL 80.0-97.0 [facility]) Erythrocytes [#/volume] in Blood by Automated count 4.19 x10*6/UL 4.2 0-6.30 [facility] ([facility]) Hematocrit [Volume Fraction] of Blood by Automated count 40.6 % 3 7.0-51.0 [facility] ([facility]) Erythrocyte distribution width [Ratio] by Automated count 13.8 % 11.6-13.7 [facility] ([facility]) MCHC 34.9 g/dL 31.0-38.0 [facility]) MCH 33.8 pg 26.0-32.0 [facility]) Platelets [#/volume] in Blood by Automated count 255 x10*3/UL 140-440 [facility] ([facility]) MPV 8.7 FL 7.8-11.0 [facility]) Lymph % 24.3 % 10.0-58.5 [facility]) Mid % 5.8 % 1.7-9.3 [facility]) Lymph # 1.5 x10*3/UL 0.6-4.1 [facility] ([facility]) Neut % 69.9 % 37.0-92.0 [facility]) Mid # 0.4 x10*3/UL 0.1-0.6 [facility] ([facility]) Neut # 4.3 x10*3/UL 2.0-7.8 [facility] ([facility]) ID Date Data Source [id number] 02/26/2020 12:00:00 AM EDT [facility] Carissa SMITH Patient Name: EVELYN [id number] Date of : 1940[place] [id number]- Date of Exam: 02/26/2020#: Fax: [phone] EXAM: MRI PELVIS WITHOUT&WITH CONTRASTCLINICAL INFORMATION: Followup T1 hypointense focus in the left posteriorileum seen on prior lumbar spine MRI and partially imaged.Pre and post contrast 3T MRI of the pelvis was performed utilizing varioussequences. Gadolinium utilized: 18 cc of ProHance.There are no prior pelvic MRI's for comparison.In the left posterior ileum, there is a 1 cm sized focus of T1 and [id number] which shows slight Gadolinium enhancement. This is the lesionpartially imaged on the lumbar spine MRI. No other enhancing bone lesionsare present. The overall marrow signal has a mottled appearance in both T1and T2 weighted imaging. Degenerative change is seen involving the hipsand sacroiliac joints. There is no evidence of an acute fracture. Thereis no joint effusion. The signal and morphologic appearance throughout theimaged musculature is within normal limits. Seen in the anterior right hiplabrum on the sagittal images only, there is a linear hypersignal focus onthe post Gadolinium enhanced sagittal images.IMPRESSION:1. Focal enhancing left iliac bony lesion as described above and theetiology for which is uncertain. Certainly, a tiny metastatic focus cannotbe ruled out. This needs to be correlated clinically; and if necessary,obtain bone scintigraphy of the axial and appendicular skeleton.2. Possible right hip anterior labral tear. Correlate clinically; and ifnecessary, obtain hip MRI arthrography.3. Degenerative changes as described above.4. Other findings as described above.Accredited by the [employer] in MR.Livier Malloy, KENAN/Liliam you for referring EVELYN WHELAN to our office. Electronically Signed - LIVIER MALLOY DO 02/26/20 14:05 Name Value Range Interpretation Code Description Data Paula rce(s) Supporting Document(s) Procedure Social History Code Duration Value Status Description Data Source(s ) Smoking 06/25/2020 12:00:00 AM EST Patient is a former smoker completed Patient is a former smoker [facility] ([facility]) Vital Signs ID Date Data Source UNK Name Value Range Interpretation Code Description Data Source(s) Systolic blood pressure 132 mm[Hg] 132 mm[Hg] [facility]) Body height 70 [in_i] 70 [in_i] [facility] ([facility]) 5'10" Body weight 207.00 [lb_av] 207.00 [lb_av] [facility] Diastolic blood pressure 82 mm[Hg] 82 mm[Hg] [facility] ([facility]) Body mass index (BMI) [Ratio] 29.7 kg/m2 29.7 k g/m2 [facility] ([facility]) [place] body weight 166 [lb_av] 166 [lb_av] [facility] Body weight 93.895 kg 93.895 kg [facility] ([facility]) Body surface area Derived from formula 2.12 m2 2.12 m2 [facility] ([facility]) Systolic blood pressure 130 mm[Hg] 130 mm[Hg] [facility] Diastolic blood pressure 70 mm[Hg] 70 mm[Hg] [facility] Body height 68 [in_i] 68 [in_i] [facility] 5'8" Body weight 216.25 [lb_av] 216.25 [lb_av] [facility] Body mass index (BMI) [Ratio] 32.9 kg/m2 32.9 k g/m2 [facility] ([facility]) Systolic blood pressure 146 mm[Hg] 146 mm[Hg] [facility] ([facility]) Diastolic blood pressure 86 mm[Hg] 86 mm[Hg] [facility] ([facility]) Heart rate 50 /min 50 /min [facility] ([facility], [facility]) Respiratory rate 16 /min 16 /min [facility] ( [facility], [facility]) Oxygen saturation in Arterial blood by Pulse oximetry 97 % 97 % [facility] ([facility], [facility]) Body temperature 97.1 [degF] 97.1 [degF] [facility], [facility]) Body weight 214.00 [lb_av] 214.00 [lb_av] [facility] T ([facility], [facility]) Body height 70 [in_i] 70 [in_i] [facility] ([facility], [facility]) 5'10" Body mass index (BMI) [Ratio] 30.7 kg/m2 30.7 k g/m2 [facility] ([facility], [facility]) Systolic blood pressure 105 mm[Hg] 105 mm[Hg] [facility] Diastolic blood pressure 58 mm[Hg] 58 mm[Hg] [facility] Heart rate 56 /min 56 /min [facility] Body height 68 [in_i] 68 [in_i] [facility]) 5'8" Body weight 221.00 [lb_av] 221.00 [lb_av] [facility] T ([facility]) Body mass index (BMI) [Ratio] 33.6 kg/m2 33.6 k g/m2 [facility] Systolic blood pressure 116 mm[Hg] 116 mm[Hg] [facility] ([facility]) Diastolic blood pressure 70 mm[Hg] 70 mm[Hg] [facility] Body height 68 [in_i] 68 [in_i] [facility] ([facility]) 5'8" Body weight 219.00 [lb_av] 219.00 [lb_av] [facility] T ([facility]) Body mass index (BMI) [Ratio] 33.3 kg/m2 33.3 k g/m2 [facility])
--- OUTSIDE RECORDS SUMMARY | 2021-04-27 09:08 | CCD | Continuity of Care Document ---
Author Author Jamey [facility] Organization Unknown Address [address] [place] [address], [address] [place] [address] Phone [phone] Care Team Providers Care Windows Server Specialist Name Role Phone Lizett Levy AUTM [phone] Socrates Reddy MD @ [facility] AUTM [phone] Problems Active Problems Provider Date Chronic rhinitis [...] lb BMI (Body Mass Index) 29.7 kg/m2 [place] Body Weight 166 lb Weight 93.895 kg BSA (Body Surface Area) 2.12 m2 09/19/2014 8:09am BP Systolic 142 mmHg BP Diastolic 82 mmHg Heart Rate 56 /min Height 71 inches 5'11" Weight 209.00 lb BMI (Body Mass Index) 29.1 kg/m2 [place] Body Weight 172 lb Weight 94.802 kg BSA (Body Surface Area) 2.15 m2 Results Description No Information Available Procedures Description No Information Available Medical Devices Description No Information Available Encounters Description No Information Available Assessments Date Code Description Provider 03/19/2021 K21.9 Gastro-esophageal reflux disease without esophagitis ISAI Robert 03/19/2021 R13.10 Dysphagia, unspecified ISAI Robert Plan of Treatment 03/19/2021 - ISAI Robert* K21.9 Gastro-esophageal reflux disease without esophagitis * [...] to Reason for Referral Status Appt Date Marvel Meyer M.D. DYSPHAGIA Scheduled 03/19 [facility], [address] [place] [address] [phone]
--- OUTSIDE RECORDS SUMMARY | 2021-04-27 09:08 | CCD | Continuity of Care Document ---
Author Author Jamey MACHADO DPM Organization Unknown Address [address] [place] [address], [facility] [address] [place] [address] Phone [phone] Care Team Providers Care Golf Professional Name Role Phone Socrates Reddy JR, M.D. [phone] Problems Active Problems Provider Date Pain in limb Deandre Machado DPM Onset: 06/06/2018 Peripheral vascular disease Deandre Machado DPM Onset: 05/11 Onychomycosis Deandre Machado DPM Onset: 06/06/2018 Social History Type Date Description Comments Sex Unknown ETOH Use Occasionally consumes alcohol Tobacco Use Start: Unknown End: Unknown Patient is a former smoker Tobacco Use Start: Unknown Smoked for 40 years with 1 PPD h abit. Allergies, Adverse Reactions, Alerts Description No Known Drug Allergies Medications Active Medications SIG Qnty Indications Ordering Provide r Date Ciclopirox 8% Solution apply to affected nail(s) daily 6.6units Deandre Machado DPM 10/27/2020 Synthroid 150mcg Tablets Barry SANDERS M.D.,[place] Propranolol HCL ER 80mg Caps ER 24HR Barry SANDERS M.D.,[place] Ranitidine HCL 300mg Tablets Barry SANDERS M.D.,[place] Breo Ellipta 200-25mcg/Inh Aerosol Barry SANDERS M.D.,[place] Ezetimibe 10mg Tablets Barry SANDERS M.D.,[place] Immunizations Description No Information Available Vital Signs Date Vital Result Comment 06/04/2018 8:33am Height 71 inches 5'11" Weight 215.00 lb BP Systolic 126 mmHg BP Diastolic 70 mmHg Heart Rate 60 /min BMI (Body Mass Index) 30.0 kg/m2 Results Description No Information Available Procedures Date Code Description Status 03/16/2021 98045 Debridement 6-10 Nails Electric Completed 01/05/2021 75115 Debridement 6-10 Nails Electric Completed 10/27/2020 80518 Debridement 6-10 Nails Electric Completed Medical Devices Description No Information Available Encounters Description No Information Available Assessments Date Code Description Provider 03/16/2021 B35.1 Tinea unguium Deandre Machado, MARÍAM 03/16/2021 I73.89 Other specified peripheral vascu lar diseases Deandre Machado, RADHA 01/05/2021 B35.1 Tinea angelicuium Deandre Machado, RADHA 01/05/2021 I73.89 Other specified peripheral vascu lar diseases Deandre Machado DPM 10/27/2020 B35.1 Tinea angelicuium Deandre Machado, RADHA 10/27/2020 I73.89 Other specified peripheral vascu lar diseases Deandre Machado DPM Plan of Treatment Future Appointment(s):* 05/25/2021 8:45 am - Deandre Machado DPM at [facility] Functional Status Description No Information Available Mental Status Description No Information Available Referrals Description No Information Available
[2021-04-27] MEDS ORDERED: ePHEDrine SULFATE 25 MG/5 ML(5MG/ML) SYRINGE As Ordered ONE (10:01)
[2021-04-27 10:39] VITALS: BP 151/78
--- NOTE | 2021-04-27 11:02 | ROOR ---
Patient Name: Jamey Ahmadi Procedure Date: 04/27/2021 9:42 AM Date of : 1940 Age: 80 Room: [facility] Gender: Male Note Status: Finalized Procedure: Upper GI endoscopy Indications: Dysphagia, Heartburn Providers: Marvel Meyer MD Referring MD: FLIP VELA JR, MD Requesting Provider: Medicines: Monitored Anesthesia Care Complications: No immediate complications. Procedure: Pre-Anesthesia Assessment: - Prior to the procedure, a History and Physical was performed, and patient medications and allergies were reviewed. The patient is competent. The risks and benefits of the procedure and the sedation options and risks were discussed with the patient. All questions were answered and informed consent was obtained. Patient identification and proposed procedure were verified by the physician, the nurse and the anesthesiologist in the procedure room. Mental Status Examination: alert and oriented. Airway Examination: normal oropharyngeal airway and neck mobility. Respiratory Examination: clear to auscultation. CV Examination: normal. Prophylactic Antibiotics: The patient does not require prophylactic antibiotics. Prior Anticoagulants: The patient has taken no previous anticoagulant or antiplatelet agents. ASA Grade Assessment: III - A patient with severe systemic disease. After reviewing the risks and benefits, the patient was deemed in satisfactory condition to undergo the procedure. The anesthesia plan was to use monitored anesthesia care (MAC). Immediately prior to administration of medications, the patient was re-assessed for adequacy to receive sedatives. The heart rate, respiratory rate, oxygen saturations, blood pressure, adequacy of pulmonary ventilation, and response to care were monitored throughout the procedure. The physical status of the patient was re-assessed after the procedure. The Endoscope was introduced through the mouth, and advanced to the second part of duodenum. The upper GI endoscopy was accomplished without difficulty. The patient tolerated the procedure well. Findings: Patchy, white plaques were found in the upper third of the esophagus and in the middle third of the esophagus. Brushings for cytology were obtained in the middle third of the esophagus. Verification of patient identification for the specimen was done by the physician and nurse using the patient's name, date and medical record number. Estimated blood loss was minimal. Abnormal motility was noted at the lower esophageal sphincter. The cricopharyngeus was abnormal. There are extra peristaltic waves in the esophageal body. The distal esophagus/lower esophageal sphincter is spastic, but gives up passage to the endoscope. A TTS dilator was passed through the scope. Dilation with an 18-19-20 mm balloon dilator was performed to 20 mm. The dilation site was examined following endoscope reinsertion and showed moderate improvement in luminal narrowing and no bleeding, mucosal tear or perforation. Scattered moderate inflammation characterized by erythema and granularity was found in the gastric antrum. Biopsies were taken with a cold forceps for Helicobacter pylori testing. Decreased folds were found in the duodenal bulb, decreased folds were found in the second portion of the duodenum, flattening was found in the duodenal bulb, flattening was found in the second portion of the duodenum, flattening was found in the third portion of the duodenum and thickened folds were found in the third portion of the duodenum. Biopsies for histology were taken with a cold forceps for evaluation of celiac disease. Impression: - Esophageal plaques were found, consistent with candidiasis. Brushings performed. - Abnormal esophageal motility, suspicious for achalasia. Dilated. - Gastritis. Biopsied. - Duodenal mucosal changes seen, consistent with celiac disease. Biopsied. Recommendation: - Patient has a contact number available for emergencies. The signs and symptoms of potential delayed complications were discussed with the patient. Return to normal activities tomorrow. Written discharge instructions were provided to the patient. - Gluten free diet. - Continue present medications. - Follow an antireflux regimen. - Return to GI clinic in [facility] (address: [address] [place] [address], [address] [place] [address], [place], [place],[address]) in 4 -- 6 weeks. Please call GI clinic @ [phone] for apppointment date and time. - Return to primary care physician. Procedure Code(s): --- Professional --- 72798, Esophagogastroduodenoscopy, flexible, transoral; with transendoscopic balloon dilation of esophagus (less than 30 mm diameter) 75544, 59, Esophagogastroduodenoscopy, flexible, transoral; with biopsy, single or multiple Diagnosis Code(s): --- Professional --- K22.9, Disease of esophagus, unspecified K22.4, Dyskinesia of esophagus K29.70, Gastritis, unspecified, without bleeding K31.89, Other diseases of stomach and duodenum R13.10, Dysphagia, unspecified R12, Heartburn CPT copyright 2019 [employer]. All rights reserved. The codes documented in this report are preliminary and upon automobile taillight assembler review may be revised to meet current compliance requirements. Marvel Meyer MD Marvel Meyer MD 04/27/2021 11:02:10 AM Electronically signed by Marvel Meyer MD Number of Addenda: 0 Note Initiated On: 04/27/2021 9:42 AM Estimated Blood Loss: Estimated blood loss was minimal.
== END 2021-04-27 10:40 | disposition home or self-care (01) ==
LOC: M OPP 09:03
PROVIDERS: ATTEND Internal Medicine Gastroenterology
DX: K22.4 Dyskinesia of esophagus (principal); K29.70 Gastritis, unspecified, without bleeding; K31.89 Other diseases of stomach and duodenum; R13.10 Dysphagia, unspecified; K52.9 Noninfective gastroenteritis and colitis, unspecified; R12 Heartburn; E03.9 Hypothyroidism, unspecified; I10 Essential (primary) hypertension; J44.9 Chronic obstructive pulmonary disease, unspecified; Z79.82 Long term (current) use of aspirin; Z79.899 Other long term (current) drug therapy; Z88.8 Allergy status to other drugs, medicaments and biological substances
CPT/HCPCS: 43239; 43249; 88104; 88305; 88342; J3010

== ENCOUNTER → 2021-05-10 | Outpatient (CLI) | payer MEDICARE, BC ==
[~2021-05-10] MED LIST changes: -LIDOCAINE 2% 100MG/5ML SDV (FOR ANES.) As Ordered ONE; -NS 1,000 ML IV ONE; -fentaNYL 100 MCG/2 ML INJECTION (J3010) As Ordered ONE; -propofoL 200 MG/20 ML VIAL As Ordered ONE
== END ==
LOC: M PLALAB 11:09
PROVIDERS: ATTEND Physician Assistant Medical
DX: K90.0 Celiac disease (principal)
CPT/HCPCS: 36415; 82784; 83516; G0463

== ENCOUNTER → 2021-06-15 | Outpatient (REF) | payer MEDICARE, BC ==
[2021-06-15 12:42] LABS: IMMUNOGLOBULIN M 21.2 MG/DL (40-230); TOTAL PROTEIN 7.1 GM/DL (6.4-8.2)
== END ==
LOC: M LAB REF 11:25
PROVIDERS: ATTEND Internal Medicine
DX: D47.2 Monoclonal gammopathy (principal)

== ENCOUNTER → 2021-06-20 | Outpatient (REF) | payer MEDICARE, BC | LOC: M LAB REF 10:52 | PROVIDERS: ATTEND Physician Assistant Medical | DX: A04.8 Other specified bacterial intestinal infections (principal); B96.81 Helicobacter pylori [H. pylori] as the cause of diseases classified elsewhere ==

== ENCOUNTER → 2021-06-21 | Outpatient (CLI) | payer MEDICARE, BC ==
[~2021-06-21] MED LIST changes: +E-Z-PAQUE 96% w/w SUSP 176GM BTL As Ordered ONE
== END ==
LOC: M RAD 07:13
PROVIDERS: ATTEND Physician Assistant Medical
DX: K90.0 Celiac disease (principal)

== ENCOUNTER → 2021-12-03 | Outpatient (CLI) | payer MEDICARE, BC ==
[~2021-12-03] MED LIST changes: -E-Z-PAQUE 96% w/w SUSP 176GM BTL As Ordered ONE
[2021-12-03 12:26] LABS: BASO # 0.1 10^3/uL (0.0-0.2); BASO % 1.3 % (0.0-1.0); EOS # 0.3 10^3/uL (0.0-0.5); EOS % 6.3 % (0.0-3.0); HEMATOCRIT 39.4 % (42.0-52.0); HEMOGLOBIN 13.2 g/dl (13.5-17.5); LYMPH # 1.6 10^3/uL (1.5-5.0); LYMPH % 29.7 % (24.0-44.0); MEAN CORPUSCULAR HEMOGLOBIN 34.3 pg (27.0-33.0); MEAN CORPUSCULAR HGB CONC 33.5 g/dl (32.0-36.5); MEAN CORPUSCULAR VOLUME 102.3 fl (80.0-96.0); MONO # 0.5 10^3/uL (0.0-0.8); MONO % 10.2 % (2.0-8.0); NEUTROPHILS # 2.7 10^3/uL (1.5-8.5); NEUTROPHILS % 52.1 % (36.0-66.0); PLATELET COUNT, AUTOMATED 241 10^3/uL (150-450); RED BLOOD COUNT 3.85 10^6/uL (4.30-6.10); WHITE BLOOD COUNT 5.2 10^3/uL (4.0-10.0)
[2021-12-03 13:18] LABS: FOLATE 3.4 NG/ML; FREE T4 1.02 NG/DL (0.76-1.46); THYROID STIMULATING HORMONE 1.48 uIU/ML (0.358-3.740); THYROXINE (T4) 7.5 UG/DL (4.5-12.0)
== END ==
LOC: M WUC 09:40
PROVIDERS: ATTEND Psychiatry & Neurology Neurology
DX: R25.1 Tremor, unspecified (principal); E03.9 Hypothyroidism, unspecified; E53.8 Deficiency of other specified B group vitamins

== ENCOUNTER → 2022-07-06 | Outpatient (CLI) | payer MEDICARE, BC ==
[~2022-07-06] MED LIST changes: +CLOP75TA99 PO; -PLAV1TAB2 PO
[2022-07-06 16:58] LABS: ALBUMIN 2.9 G/DL (3.2-5.2); ALKALINE PHOSPHATASE 97 U/L (46-116); ALT/SGPT 18 U/L (7.0-40); AST/SGOT 18 U/L (<34); BILIRUBIN,TOTAL 0.2 MG/DL (0.3-1.2); BLOOD UREA NITROGEN 13 MG/DL (9-23); CALCIUM LEVEL 8.5 MG/DL (8.3-10.6); CARBON DIOXIDE LEVEL 27 MMOL/L (20-31); CHLORIDE LEVEL 103 MMOL/L (98-107); CREATININE FOR GFR 0.81 MG/DL (0.70-1.30); GLOMERULAR FILTRATION RATE > 60.0 (>35); GLUCOSE, FASTING 97 MG/DL (74-106); SODIUM LEVEL 136 MMOL/L (136-145); TOTAL PROTEIN 6.4 G/DL (5.7-8.2)
[2022-07-06 17:00] LABS: VITAMIN B12 LEVEL 1339 PG/ML (211-911)
[2022-07-06 17:04] LABS: FOLATE 3.16 NG/ML (>5.4)
== END ==
LOC: M WUC 10:56
PROVIDERS: ATTEND Psychiatry & Neurology Neurology
DX: H53.2 Diplopia (principal); D51.9 Vitamin B12 deficiency anemia, unspecified; E56.0 Deficiency of vitamin E

== ENCOUNTER → 2022-09-21 | Outpatient (REF) | payer MEDICARE, BC ==
[2022-09-21 12:49] LABS: IMMUNOGLOBULIN A 71.6 MG/DL (40-350)
[2022-09-21 12:50] LABS: IMMUNOGLOBULIN M 26.3 MG/DL (50-300)
== END ==
LOC: M LAB REF 12:14
PROVIDERS: ATTEND Internal Medicine
DX: D47.2 Monoclonal gammopathy (principal)

== ENCOUNTER 2022-12-02 11:35 | Observation (INO) | payer MEDICARE, BC ==
[~2022-12-02] VITALS: Ht 177.8 cm; Wt 90.9 kg
[~2022-12-02 11:35] MED LIST changes: -BREO1INH3; +BREO1INH3 INH
[2022-12-02] MEDS ORDERED: FOLI1TAB11 PO (11:58)
[2022-12-02] MEDS ORDERED: PRIM250T8 PO (11:58)
[2022-12-02 12:22] LABS: LIPASE 30 U/L (12-53)
[2022-12-02 12:24] LABS: ALKALINE PHOSPHATASE 99 U/L (46-116); ALT/SGPT 27 U/L (7.0-40); AST/SGOT 23 U/L (<34); BILIRUBIN,DIRECT < 0.1 MG/DL (<0.4); BILIRUBIN,TOTAL 0.2 MG/DL (0.3-1.2); BLOOD UREA NITROGEN 13 MG/DL (9-23); CALCIUM LEVEL 8.9 MG/DL (8.3-10.6); CARBON DIOXIDE LEVEL 27 MMOL/L (20-31); CHLORIDE LEVEL 105 MMOL/L (98-107); CK-MB VALUE MASS < 1.0 NG/ML (<3.6); CREATININE FOR GFR 0.96 MG/DL (0.70-1.30); GLOMERULAR FILTRATION RATE > 60.0 (>35); GLUCOSE, FASTING 94 MG/DL (74-106); SODIUM LEVEL 136 MMOL/L (136-145); TOTAL PROTEIN 6.6 G/DL (5.7-8.2)
[2022-12-02 12:25] LABS: BASO # 0.1 10^3/uL (0.0-0.2); BASO % 1.2 % (0.0-1.0); EOS # 0.4 10^3/uL (0.0-0.5); EOS % 7.1 % (0.0-3.0); HEMATOCRIT 43.2 % (42.0-52.0); HEMOGLOBIN 14.1 g/dl (13.5-17.5); LYMPH # 1.6 10^3/uL (1.5-5.0); LYMPH % 27.7 % (24.0-44.0); MEAN CORPUSCULAR HGB CONC 32.6 g/dl (32.0-36.5); MEAN CORPUSCULAR VOLUME 101.2 fl (80.0-96.0); MONO # 0.6 10^3/uL (0.0-0.8); MONO % 10.3 % (2.0-8.0); NEUTROPHILS # 3.1 10^3/uL (1.5-8.5); NEUTROPHILS % 53.2 % (36.0-66.0); PLATELET COUNT, AUTOMATED 245 10^3/uL (150-450); RED BLOOD COUNT 4.27 10^6/uL (4.30-6.10); WHITE BLOOD COUNT 5.9 10^3/uL (4.0-10.0)
[2022-12-02 12:26] LABS: THYROID STIMULATING HORMONE 1.569 uIU/ML (0.55-4.78)
[2022-12-02 12:36] LABS: INR 1.09; PROTHROMBIN TIME 14.3 SECONDS (12.5-14.5)
[2022-12-02 12:41] LABS: CPK CREATINE PHOSPHOKINASE 70 U/L (46-171); MB/CK RELATIVE INDEX 1.42 (< OR =4)
[2022-12-02 13:28] LABS: CK-MB VALUE MASS < 1.0 NG/ML (<3.6)
[2022-12-02 13:33] LABS: CPK CREATINE PHOSPHOKINASE 64 U/L (46-171); MB/CK RELATIVE INDEX 1.56 (< OR =4)
[2022-12-02 13:50] LABS: RSV AMPLIFICATION NEGATIVE (NEGATIVE)
[2022-12-02] MEDS ORDERED: NS 500 ML IV ONE (14:15)
[2022-12-02] MEDS ORDERED: NITR0.4S14 SL (15:37)
[2022-12-02] MEDS ORDERED: ACET1TAB55 PO (15:37)
[2022-12-02] MEDS ORDERED: SYNT150T PO (15:37)
[2022-12-02] MEDS ORDERED: HOME MED LIST COMPLETE! XX SCH (15:40)
[2022-12-02 17:20] VITALS: BP_SYST 129; BP_SYST 133; BP_SYST 148; BP_DIAS 63; BP_DIAS 70; BP_DIAS 77
[2022-12-02] MEDS ORDERED: ACETAMINOPHEN TAB 650MG DOSE (2X325MG) PO PRN (17:50)
[2022-12-02] MEDS: ADVAIR HFA 230/21MCG INHALER INH SCH (19:11)
[2022-12-02 20:00] VITALS: BP 143/70
[2022-12-02] MEDS: PRIMIDONE 125MG PER 1/2 TABLET PO SCH (20:40)
[2022-12-03] VITALS: BP_SYST 107; BP_SYST 128; BP_SYST 99; BP_DIAS 52; BP_DIAS 56; BP_DIAS 59
[2022-12-03 04:00] VITALS: BP 124/64
[2022-12-03] MEDS ORDERED: LEVOTHYROXINE 150MCG TABLET (0.15MG) PO SCH (06:00)
[2022-12-03 06:49] LABS: HEMATOCRIT 38.1 % (42.0-52.0); HEMOGLOBIN 12.5 g/dl (13.5-17.5); MEAN CORPUSCULAR HEMOGLOBIN 33.1 pg (27.0-33.0); MEAN CORPUSCULAR HGB CONC 32.8 g/dl (32.0-36.5); MEAN CORPUSCULAR VOLUME 100.8 fl (80.0-96.0); PLATELET COUNT, AUTOMATED 216 10^3/uL (150-450); RED BLOOD COUNT 3.78 10^6/uL (4.30-6.10); WHITE BLOOD COUNT 5.3 10^3/uL (4.0-10.0)
[2022-12-03 07:13] LABS: BLOOD UREA NITROGEN 14 MG/DL (9-23); CARBON DIOXIDE LEVEL 27 MMOL/L (20-31); CHLORIDE LEVEL 107 MMOL/L (98-107); CREATININE FOR GFR 0.91 MG/DL (0.70-1.30); GLOMERULAR FILTRATION RATE > 60.0 (>35); GLUCOSE, FASTING 93 MG/DL (74-106); MAGNESIUM LEVEL 1.9 MG/DL (1.8-2.4); PHOSPHORUS LEVEL 3.6 MG/DL (2.4-5.1); POTASSIUM SERUM 4.6 MMOL/L (3.5-5.1); SODIUM LEVEL 139 MMOL/L (136-145)
[2022-12-03] MEDS: ADVAIR HFA 230/21MCG INHALER INH SCH (07:18)
[2022-12-03 07:39] VITALS: BP 134/64
[2022-12-03] MEDS ORDERED: ENOXAPARIN 40MG/0.4ML SYRINGE (J1650 PER 10MG) SC SCH (09:00)
[2022-12-03] MEDS ORDERED: ASPIRIN 81MG CHEW TABLET PO SCH (09:00)
[2022-12-03] MEDS ORDERED: TAMSULOSIN 0.4 MG CAP PO SCH (09:00)
[2022-12-03] MEDS ORDERED: EZETIMIBE 10MG TABLET (ZETIA) PO SCH (09:00)
[2022-12-03] MEDS ORDERED: FOLIC ACID 1MG TAB PO SCH (09:00)
[2022-12-03] MEDS: PRIMIDONE 125MG PER 1/2 TABLET PO SCH (09:25)
== END 2022-12-03 12:23 | disposition home or self-care (01) ==
LOC: M ED 11:35 → M ED INP 14:50 → ENRESERV 15:43 → M PCU 17:21
PROVIDERS: ADMIT Internal Medicine; ATTEND Internal Medicine
DX: R00.1 Bradycardia, unspecified (principal); R53.1 Weakness; R51.9 Headache, unspecified; R55 Syncope and collapse; H53.2 Diplopia; G25.0 Essential tremor; J45.909 Unspecified asthma, uncomplicated; I25.10 Atherosclerotic heart disease of native coronary artery without angina pectoris; N40.0 Benign prostatic hyperplasia without lower urinary tract symptoms; Z79.82 Long term (current) use of aspirin; Z79.899 Other long term (current) drug therapy
CPT/HCPCS: 36415; 70551; 71045; 80048; 80076; 82550; 82553; 83690; 83735; 84100; 84439; 84443; 84484; 85025; 85027; 85610; 85730; 87631; 93005; 93041; 94640; 94760; 96372; 97161; 99285; G0378; J1650

== ENCOUNTER → 2023-01-12 | Outpatient (CLI) | payer MEDICARE, BC ==
[~2023-01-12] MED LIST changes: +ACET1TAB55 PO; +FOLI1TAB11 PO; +LIDOCAINE 1% MDV 20ML VIAL As Ordered ONE; +NITR0.4S14 SL; +PRIM250T8 PO; +SYNT150T PO
[2023-01-12 08:30] VITALS: TEMP 98
[2023-01-12 08:50] LABS: BASO # 0.1 10^3/uL (0.0-0.2); BASO % 0.9 % (0.0-1.0); EOS # 0.2 10^3/uL (0.0-0.5); EOS % 3.9 % (0.0-3.0); HEMOGLOBIN 13.3 g/dl (13.5-17.5); LYMPH # 1.8 10^3/uL (1.5-5.0); LYMPH % 33.1 % (24.0-44.0); MEAN CORPUSCULAR HEMOGLOBIN 33.5 pg (27.0-33.0); MEAN CORPUSCULAR HGB CONC 33.3 g/dl (32.0-36.5); MEAN CORPUSCULAR VOLUME 100.8 fl (80.0-96.0); MONO # 0.6 10^3/uL (0.0-0.8); MONO % 10.8 % (2.0-8.0); NEUTROPHILS # 2.8 10^3/uL (1.5-8.5); NEUTROPHILS % 51.1 % (36.0-66.0); PLATELET COUNT, AUTOMATED 245 10^3/uL (150-450); RED BLOOD COUNT 3.97 10^6/uL (4.30-6.10); WHITE BLOOD COUNT 5.4 10^3/uL (4.0-10.0)
[2023-01-12 09:24] VITALS: BP 165/83; O2SAT 98
== END ==
LOC: M IRPRO 08:23
PROVIDERS: ATTEND Specialist
DX: R77.9 Abnormality of plasma protein, unspecified (principal)

== ENCOUNTER → 2023-02-06 | Outpatient (CLI) | payer MEDICARE, BC ==
[~2023-02-06] MED LIST changes: -LIDOCAINE 1% MDV 20ML VIAL As Ordered ONE
== END ==
LOC: M PLARAD 09:17
PROVIDERS: ATTEND Specialist
DX: C90.00 Multiple myeloma not having achieved remission (principal); R77.8 Other specified abnormalities of plasma proteins
CPT/HCPCS: 78815; A9552

== ENCOUNTER → 2023-08-10 | Outpatient (CLI) | payer BC, MEDICARE ==
[~2023-08-10] MED LIST changes: +EZET10TA58 PO; +VITMTA PO; -ZETI10TA16 PO
[2023-08-10 14:49] LABS: BASO # 0.1 10^3/uL (0.0-0.2); EOS # 0.2 10^3/uL (0.0-0.5); HEMATOCRIT 40.1 % (42.0-52.0); HEMOGLOBIN 13.2 g/dl (13.5-17.5); LYMPH % 39.1 % (24.0-44.0); MEAN CORPUSCULAR HEMOGLOBIN 33.8 pg (27.0-33.0); MEAN CORPUSCULAR HGB CONC 32.9 g/dl (32.0-36.5); MEAN CORPUSCULAR VOLUME 102.6 fl (80.0-96.0); MONO # 0.5 10^3/uL (0.0-0.8); MONO % 9.5 % (2.0-8.0); NEUTROPHILS # 2.3 10^3/uL (1.5-8.5); PLATELET COUNT, AUTOMATED 233 10^3/uL (150-450); RED BLOOD COUNT 3.91 10^6/uL (4.30-6.10); WHITE BLOOD COUNT 5.1 10^3/uL (4.0-10.0)
[2023-08-10 15:18] LABS: ALBUMIN 2.9 G/DL (3.2-5.2); ALKALINE PHOSPHATASE 120 U/L (46-116); ALT/SGPT 20 U/L (7.0-40); AST/SGOT 15 U/L (<34); BILIRUBIN,TOTAL 0.2 MG/DL (0.3-1.2); BLOOD UREA NITROGEN 12 MG/DL (9-23); CALCIUM LEVEL 8.7 MG/DL (8.3-10.6); CARBON DIOXIDE LEVEL 26 MMOL/L (20-31); CHLORIDE LEVEL 106 MMOL/L (98-107); CREATININE FOR GFR 0.81 MG/DL (0.70-1.30); GLOMERULAR FILTRATION RATE > 60.0 (>35); GLUCOSE, FASTING 93 MG/DL (74-106); POTASSIUM SERUM 4.4 MMOL/L (3.5-5.1); SODIUM LEVEL 137 MMOL/L (136-145); TOTAL PROTEIN 6.9 G/DL (5.7-8.2)
[2023-08-10 15:20] LABS: FOLATE > 24.00 NG/ML (>5.4)
[2023-08-10 15:23] LABS: VITAMIN B12 LEVEL > 2000 PG/ML (211-911)
[2023-08-15 16:09] LABS: VITAMIN E(ALPHA TOCOPHEROL) 8.1 mg/L (9.0-29.0); VITAMIN E(GAMMA TOCOPHEROL) 1.2 mg/L (0.5-4.9)
== END ==
LOC: M WUC 09:41
PROVIDERS: ATTEND Psychiatry & Neurology Neurology
DX: E53.8 Deficiency of other specified B group vitamins (principal); E56.0 Deficiency of vitamin E; R25.1 Tremor, unspecified

== ENCOUNTER → 2023-09-15 | Outpatient (CLI) | payer MEDICARE | LOC: M WHC 07:41 | PROVIDERS: ATTEND Internal Medicine | DX: R74.8 Abnormal levels of other serum enzymes (principal); K80.20 Calculus of gallbladder without cholecystitis without obstruction; K76.0 Fatty (change of) liver, not elsewhere classified ==

== ENCOUNTER 2023-12-10 14:02 | Emergency (ER) | payer BC, MEDICARE ==
[~2023-12-10] VITALS: Ht 177.8 cm; Wt 87.8 kg
[~2023-12-10 14:02] MED LIST changes: +THERTAB52 PO; +VIT1CAPS29 PO
[2023-12-10] MEDS ORDERED: ECOT81TA5 PO (14:15)
[2023-12-10] MEDS: LIDOCAINE 2% 5ML JELLY UROJET TOP ONE (15:03)
[2023-12-10 15:20] LABS: BASO % 0.1 % (0.0-1.0); HEMATOCRIT 37.1 % (42.0-52.0); HEMOGLOBIN 12.9 g/dl (13.5-17.5); LYMPH # 0.4 10^3/uL (1.5-5.0); LYMPH % 4.8 % (24.0-44.0); MEAN CORPUSCULAR HEMOGLOBIN 33.8 pg (27.0-33.0); MEAN CORPUSCULAR HGB CONC 34.8 g/dl (32.0-36.5); MEAN CORPUSCULAR VOLUME 97.1 fl (80.0-96.0); MONO # 0.4 10^3/uL (0.0-0.8); MONO % 4.2 % (2.0-8.0); NEUTROPHILS # 8.1 10^3/uL (1.5-8.5); NEUTROPHILS % 90.7 % (36.0-66.0); PLATELET COUNT, AUTOMATED 254 10^3/uL (150-450); RED BLOOD COUNT 3.82 10^6/uL (4.30-6.10)
[2023-12-10 15:46] LABS: LIPASE 21 U/L (12-53)
[2023-12-10 15:48] LABS: ALBUMIN 3.2 G/DL (3.2-5.2); ALKALINE PHOSPHATASE 124 U/L (46-116); ALT/SGPT 23 U/L (7.0-40); AST/SGOT 13 U/L (<34); BILIRUBIN,TOTAL 0.3 MG/DL (0.3-1.2); BLOOD UREA NITROGEN 12 MG/DL (9-23); CALCIUM LEVEL 9.2 MG/DL (8.3-10.6); CARBON DIOXIDE LEVEL 22 MMOL/L (20-31); CHLORIDE LEVEL 98 MMOL/L (98-107); CREATININE FOR GFR 1.03 MG/DL (0.70-1.30); GLOMERULAR FILTRATION RATE > 60.0 (>35); GLUCOSE, FASTING 127 MG/DL (74-106); SODIUM LEVEL 128 MMOL/L (136-145); TOTAL PROTEIN 6.9 G/DL (5.7-8.2)
[2023-12-10] MEDS ORDERED: ISOVUE-370 76% 100ML VIAL As Ordered ONE (16:02)
[2023-12-10] MEDS: FLEET ENEMA PR STA (17:39)
[2023-12-10] MEDS: FLEET OIL RETENTION ENEMA PR PRN (18:34)
[2023-12-10] MEDS: BISACODYL 10MG SUPP PR ONE (20:04)
[2023-12-10] MEDS ORDERED: MIRA3350 PO (20:35)
[2023-12-10] MEDS ORDERED: DULC10SU2 PR (20:35)
[2023-12-10 21:54] VITALS: BP 141/78; TEMP 98.1; O2SAT 98
== END 2023-12-10 21:55 | disposition home or self-care (01) ==
LOC: M ED 14:02
DX: R33.9 Retention of urine, unspecified (principal); K59.00 Constipation, unspecified; J44.9 Chronic obstructive pulmonary disease, unspecified; E78.5 Hyperlipidemia, unspecified; E03.9 Hypothyroidism, unspecified; Z86.79 Personal history of other diseases of the circulatory system; Z91.030 Bee allergy status; Z79.82 Long term (current) use of aspirin; Z79.2 Long term (current) use of antibiotics; Z79.899 Other long term (current) drug therapy
CPT/HCPCS: 36415; 51702; 74177; 80053; 81001; 83690; 85025; 99285; Q9967

== ENCOUNTER → 2023-12-19 | Outpatient (REF) | payer MEDICARE ==
[~2023-12-19] MED LIST changes: +DULC10SU2 PR; +ECOT81TA5 PO; +MIRA3350 PO
[2023-12-19 18:39] LABS: APPEARANCE, URINE CLOUDY (CLEAR); BACTERIA, URINE AUTO NEGATIVE (NEGATIVE); BILIRUBIN, URINE AUTO NEGATIVE (NEGATIVE); BLOOD, URINE BLOOD 1+ (NEGATIVE); COLOR, URINE YELLOW (YELLOW); GLUCOSE, URINE (UA) AUTO NEGATIVE (NEGATIVE); KETONE, URINE AUTO NEGATIVE (NEGATIVE); LEUKOCYTE ESTERASE, URINE AUTO 3+ (NEGATIVE); MUCUS, URINE SMALL (NEGATIVE); NITRITE, URINE AUTO POSITIVE (NEGATIVE); PROTEIN, URINE AUTO 1+ mg/dL (NEGATIVE); RBC, URINE AUTO 2 /HPF (0-3); SPECIFIC GRAVITY URINE AUTO 1.008 (1.002-1.035); SQUAMOUS EPITHELIAL CELL UR AU 0 /HPF (0-6); WBC, URINE AUTO TNTC /HPF (0-3)
== END ==
LOC: M SMT 17:10 → EEVIPCON 17:10
PROVIDERS: ATTEND Urology
DX: R33.8 Other retention of urine (principal)

== ENCOUNTER 2023-12-25 08:12 | Inpatient (IN) | payer MEDICARE ==
[~2023-12-25] VITALS: Ht 177.8 cm; Wt 84.2 kg
[2023-12-25] MEDS: MULTIVITAMINS/MINERALS THERAP 1 TAB PO SCH (09:00)
[2023-12-25] MEDS: FOLIC ACID 1MG TAB PO SCH (09:00)
[2023-12-25 09:08] LABS: BASO % 0.3 % (0.0-1.0); HEMATOCRIT 35.4 % (42.0-52.0); HEMOGLOBIN 12.2 g/dl (13.5-17.5); LYMPH # 0.4 10^3/uL (1.5-5.0); LYMPH % 2.9 % (24.0-44.0); MEAN CORPUSCULAR HEMOGLOBIN 34.1 pg (27.0-33.0); MEAN CORPUSCULAR HGB CONC 34.5 g/dl (32.0-36.5); MEAN CORPUSCULAR VOLUME 98.9 fl (80.0-96.0); MONO # 0.4 10^3/uL (0.0-0.8); MONO % 3.4 % (2.0-8.0); NEUTROPHILS # 11.2 10^3/uL (1.5-8.5); NEUTROPHILS % 92.7 % (36.0-66.0); PLATELET COUNT, AUTOMATED 345 10^3/uL (150-450); RED BLOOD COUNT 3.58 10^6/uL (4.30-6.10); WHITE BLOOD COUNT 12.1 10^3/uL (4.0-10.0)
[2023-12-25] MEDS: ACETAMINOPHEN 500 MG TAB PO ONE (09:29)
[2023-12-25 09:36] LABS: ALBUMIN 2.5 G/DL (3.2-5.2); ALKALINE PHOSPHATASE 103 U/L (46-116); ALT/SGPT 28 U/L (7.0-40); AST/SGOT 23 U/L (<34); BILIRUBIN,DIRECT 0.1 MG/DL (<0.4); BILIRUBIN,TOTAL 0.4 MG/DL (0.3-1.2); BLOOD UREA NITROGEN 10 MG/DL (9-23); CALCIUM LEVEL 8.2 MG/DL (8.3-10.6); CARBON DIOXIDE LEVEL 23 MMOL/L (20-31); CHLORIDE LEVEL 103 MMOL/L (98-107); CREATININE FOR GFR 0.72 MG/DL (0.70-1.30); GLOMERULAR FILTRATION RATE > 60.0 (>35); GLUCOSE, FASTING 141 MG/DL (74-106); POTASSIUM SERUM 4.1 MMOL/L (3.5-5.1); SODIUM LEVEL 133 MMOL/L (136-145); TOTAL PROTEIN 6.1 G/DL (5.7-8.2)
[2023-12-25] MEDS: PERCOCET 5MG/325MG TAB PO ONE (15:51)
[2023-12-25] MEDS ORDERED: MAALOX 30 ML SUSP *UDC PO PRN (16:15)
[2023-12-25] MEDS ORDERED: MOM 30ML SUSPENSION UDC PO PRN (16:15)
[2023-12-25] MEDS: PRIMIDONE 125MG PER 1/2 TABLET PO STA (16:27)
[2023-12-25] MEDS: ASPIRIN 81MG CHEW TABLET PO ONE (16:27)
[2023-12-25 16:44] LABS: C REACTIVE PROTEIN QUANTITATIV 9.1 MG/DL (<1.0)
[2023-12-25 17:10] VITALS: BP 109/56; TEMP 99.3; O2SAT 94
[2023-12-25] MEDS ORDERED: POLY17PO18 PO (17:11)
[2023-12-25] MEDS ORDERED: NITR100C2 PO (17:11)
[2023-12-25] MEDS ORDERED: ACET650T61 PO (17:11)
[2023-12-25] MEDS ORDERED: VITA100T86 PO (17:11)
[2023-12-25] MEDS ORDERED: MULT-90 PO (17:11)
[2023-12-25] MEDS ORDERED: HOME MED LIST COMPLETE! XX SCH (17:15)
[2023-12-25 17:19] LABS: CHOLESTEROL RISK RATIO 7.28 (<5); HDL CHOLESTEROL 22.1 MG/DL (>40); LDL CHOLESTEROL 113.1 MG/DL (<100); NON-HDL-C 138.9 MG/DL
[2023-12-25 17:23] VITALS: BP 109/56; TEMP 99.3; O2SAT 94
[2023-12-25] MEDS ORDERED: NITROGLYCERIN 0.4MG SUBL TABLET SL PRN (18:10)
[2023-12-25 18:48] LABS: HEMOGLOBIN A1c 5.4 % (4.0-6.0)
[2023-12-25 19:55] VITALS: BP 108/56; TEMP 97.6; O2SAT 94
[2023-12-25] MEDS: ATORVASTATIN 20 MG TAB PO SCH (20:17)
[2023-12-25] MEDS: TAMSULOSIN 0.4 MG CAP PO SCH (20:17)
[2023-12-25] MEDS: NITROFURANTOIN (MACROBID) 100 MG CAP PO SCH (20:18)
[2023-12-25] MEDS: PRIMIDONE 250 MG TAB PO SCH (20:18)
[2023-12-25] MEDS: EZETIMIBE 10MG TABLET (ZETIA) PO SCH (20:18)
[2023-12-25] MEDS: HEPARIN SOD (PORCINE) 5000UNITS/ML 1ML VIAL/SYRINGE SC SCH (20:18)
[2023-12-25] MEDS: DOCUSATE SODIUM 100MG CAPSULE PO SCH (20:18)
[2023-12-25] MEDS: ADVAIR HFA 230/21MCG INHALER INH SCH (20:25)
[2023-12-26] VITALS (11 sets, daily range): BP systolic 107–169; BP diastolic 57–75; TEMP 97.8–102.9; O2SAT 94–96
[2023-12-26] MEDS: LEVOTHYROXINE 150MCG TABLET (0.15MG) PO SCH (05:22)
[2023-12-26 05:30] LABS: BASO % 0.4 % (0.0-1.0); EOS # 0.1 10^3/uL (0.0-0.5); EOS % 0.9 % (0.0-3.0); HEMATOCRIT 30.3 % (42.0-52.0); HEMOGLOBIN 10.5 g/dl (13.5-17.5); LYMPH # 0.6 10^3/uL (1.5-5.0); LYMPH % 7.1 % (24.0-44.0); MEAN CORPUSCULAR HGB CONC 34.7 g/dl (32.0-36.5); MEAN CORPUSCULAR VOLUME 98.1 fl (80.0-96.0); MONO # 0.4 10^3/uL (0.0-0.8); MONO % 4.9 % (2.0-8.0); NEUTROPHILS # 6.8 10^3/uL (1.5-8.5); NEUTROPHILS % 86.3 % (36.0-66.0); PLATELET COUNT, AUTOMATED 293 10^3/uL (150-450); RED BLOOD COUNT 3.09 10^6/uL (4.30-6.10); WHITE BLOOD COUNT 7.9 10^3/uL (4.0-10.0)
[2023-12-26 06:01] LABS: BLOOD UREA NITROGEN 9 MG/DL (9-23); CARBON DIOXIDE LEVEL 26 MMOL/L (20-31); CHLORIDE LEVEL 104 MMOL/L (98-107); CREATININE FOR GFR 0.75 MG/DL (0.70-1.30); GLOMERULAR FILTRATION RATE > 60.0 (>35); GLUCOSE, FASTING 105 MG/DL (74-106); MAGNESIUM LEVEL 1.8 MG/DL (1.8-2.4); POTASSIUM SERUM 4.3 MMOL/L (3.5-5.1); SODIUM LEVEL 134 MMOL/L (136-145)
[2023-12-26] MEDS: ASPIRIN 81MG CHEW TABLET PO SCH (08:02)
[2023-12-26] MEDS: MIRALAX *UNIT DOSE* 17GM PACKET PO SCH (08:03)
[2023-12-26] MEDS ORDERED: PROHANCE 279.3MG/ML 15ML VIAL As Ordered ONE (11:16)
[2023-12-26] MEDS ORDERED: PROHANCE 279.3MG/ML 5ML VIAL As Ordered ONE (11:16)
[2023-12-26] MEDS: ACETAMINOPHEN TAB 650MG DOSE (2X325MG) PO PRN (13:28)
[2023-12-27] VITALS (16 sets, daily range): BP systolic 100–144; BP diastolic 56–70; TEMP 98.1–103.2; O2SAT 94–98
[2023-12-27] MEDS: IBUPROFEN 400MG TAB PO PRN (04:14)
[2023-12-27] MEDS: cefTRIAXone SOD 1 GM in D5W MINI-BAG PLUS 50 ML IV SCH (05:38)
[2023-12-27 06:36] LABS: BASO % 0.4 % (0.0-1.0); EOS # 0.1 10^3/uL (0.0-0.5); EOS % 1.2 % (0.0-3.0); HEMATOCRIT 32.8 % (42.0-52.0); HEMOGLOBIN 11.4 g/dl (13.5-17.5); LYMPH # 0.3 10^3/uL (1.5-5.0); LYMPH % 4.3 % (24.0-44.0); MEAN CORPUSCULAR HEMOGLOBIN 33.5 pg (27.0-33.0); MEAN CORPUSCULAR HGB CONC 34.8 g/dl (32.0-36.5); MEAN CORPUSCULAR VOLUME 96.5 fl (80.0-96.0); MONO # 0.3 10^3/uL (0.0-0.8); MONO % 4.3 % (2.0-8.0); NEUTROPHILS # 6.7 10^3/uL (1.5-8.5); NEUTROPHILS % 89.5 % (36.0-66.0); PLATELET COUNT, AUTOMATED 312 10^3/uL (150-450); WHITE BLOOD COUNT 7.5 10^3/uL (4.0-10.0)
[2023-12-27 06:49] LABS: BLOOD UREA NITROGEN 9 MG/DL (9-23); CALCIUM LEVEL 8.4 MG/DL (8.3-10.6); CARBON DIOXIDE LEVEL 24 MMOL/L (20-31); CHLORIDE LEVEL 103 MMOL/L (98-107); CREATININE FOR GFR 0.69 MG/DL (0.70-1.30); GLOMERULAR FILTRATION RATE > 60.0 (>35); GLUCOSE, FASTING 115 MG/DL (74-106); MAGNESIUM LEVEL 1.9 MG/DL (1.8-2.4); POTASSIUM SERUM 3.9 MMOL/L (3.5-5.1); SODIUM LEVEL 135 MMOL/L (136-145)
[2023-12-27] MEDS ORDERED: ISOVUE-370 76% 100ML VIAL As Ordered ONE (07:00)
[2023-12-27 09:54] LABS: PROCALCITONIN 0.23 ng/ml
[2023-12-27] MEDS: ACETAMINOPHEN *IV* 1,000 MG in IV 1 EA IV ONE (16:45)
[2023-12-27] MEDS: MEROPENEM INJ 1 GM in IV 1 EA IV SCH (17:12)
[2023-12-27] MEDS: IBUPROFEN 800 MG TAB PO PRN (18:48)
[2023-12-27] MEDS: ACETAMINOPHEN 500 MG TAB PO SCH (23:06)
[2023-12-28] VITALS (7 sets, daily range): BP systolic 106–126; BP diastolic 58–73; TEMP 97.5–103.1; O2SAT 95–96
[2023-12-28 05:43] LABS: BASO % 0.4 % (0.0-1.0); EOS # 0.4 10^3/uL (0.0-0.5); EOS % 8.1 % (0.0-3.0); HEMATOCRIT 32.7 % (42.0-52.0); HEMOGLOBIN 11.2 g/dl (13.5-17.5); LYMPH # 0.4 10^3/uL (1.5-5.0); LYMPH % 8.3 % (24.0-44.0); MEAN CORPUSCULAR HEMOGLOBIN 33.5 pg (27.0-33.0); MEAN CORPUSCULAR HGB CONC 34.3 g/dl (32.0-36.5); MEAN CORPUSCULAR VOLUME 97.9 fl (80.0-96.0); MONO # 0.4 10^3/uL (0.0-0.8); MONO % 6.6 % (2.0-8.0); NEUTROPHILS # 4.1 10^3/uL (1.5-8.5); NEUTROPHILS % 76.4 % (36.0-66.0); PLATELET COUNT, AUTOMATED 281 10^3/uL (150-450); RED BLOOD COUNT 3.34 10^6/uL (4.30-6.10); WHITE BLOOD COUNT 5.3 10^3/uL (4.0-10.0)
[2023-12-28 06:20] LABS: BLOOD UREA NITROGEN 8 MG/DL (9-23); CALCIUM LEVEL 8.3 MG/DL (8.3-10.6); CARBON DIOXIDE LEVEL 26 MMOL/L (20-31); CHLORIDE LEVEL 101 MMOL/L (98-107); CREATININE FOR GFR 0.74 MG/DL (0.70-1.30); GLOMERULAR FILTRATION RATE > 60.0 (>35); GLUCOSE, FASTING 101 MG/DL (74-106); MAGNESIUM LEVEL 1.9 MG/DL (1.8-2.4); POTASSIUM SERUM 3.7 MMOL/L (3.5-5.1); SODIUM LEVEL 132 MMOL/L (136-145)
[2023-12-28] MEDS: ACETAMINOPHEN 500 MG TAB PO PRN (16:12)
[2023-12-28] MEDS: KETOROLAC 30 MG/ML 1ML VIAL IV ONE (17:30)
[2023-12-28 17:45] LABS: ERYTHROCYTE SEDIMENTATION RATE 59 mm/hr (0-20)
[2023-12-28] MEDS: VANCOMYCIN HCL 750 MG, VIAL MATE ADAPTER 1 EACH in D5W 250 ML IV ONE ×2 (20:43→21:49)
[2023-12-29 00:30] VITALS: TEMP 101
[2023-12-29 04:22] VITALS: BP 104/58; TEMP 100.2; O2SAT 70
[2023-12-29 05:46] LABS: EOS # 0.3 10^3/uL (0.0-0.5); EOS % 7.7 % (0.0-3.0); HEMATOCRIT 31.4 % (42.0-52.0); LYMPH # 0.3 10^3/uL (1.5-5.0); LYMPH % 7.5 % (24.0-44.0); MEAN CORPUSCULAR HEMOGLOBIN 33.6 pg (27.0-33.0); MONO # 0.2 10^3/uL (0.0-0.8); MONO % 5.3 % (2.0-8.0); NEUTROPHILS # 3.3 10^3/uL (1.5-8.5); NEUTROPHILS % 78.3 % (36.0-66.0); PLATELET COUNT, AUTOMATED 298 10^3/uL (150-450); RED BLOOD COUNT 3.27 10^6/uL (4.30-6.10); WHITE BLOOD COUNT 4.2 10^3/uL (4.0-10.0)
[2023-12-29 06:13] LABS: BLOOD UREA NITROGEN 8 MG/DL (9-23); CALCIUM LEVEL 7.8 MG/DL (8.3-10.6); CARBON DIOXIDE LEVEL 24 MMOL/L (20-31); CHLORIDE LEVEL 101 MMOL/L (98-107); CREATININE FOR GFR 0.69 MG/DL (0.70-1.30); GLOMERULAR FILTRATION RATE > 60.0 (>35); GLUCOSE, FASTING 99 MG/DL (74-106); MAGNESIUM LEVEL 1.9 MG/DL (1.8-2.4); POTASSIUM SERUM 3.6 MMOL/L (3.5-5.1); SODIUM LEVEL 131 MMOL/L (136-145)
[2023-12-29] MEDS ORDERED: IBUPROFEN 800 MG TAB PO PRN (06:25)
[2023-12-29] MEDS: VANCOMYCIN HCL 1,000 MG, VIAL MATE ADAPTER 1 EACH in D5W 250 ML IV SCH (06:29)
[2023-12-29] MEDS: ENOXAPARIN 40MG/0.4ML SYRINGE (J1650 PER 10MG) SC SCH (08:49)
[2023-12-29] MEDS: SODIUM CHLORIDE 0.9% 1000ML IV ONE (09:10)
[2023-12-29] MEDS: NS 1,000 ML IV SCH (11:18)
[2023-12-29 12:00] VITALS: BP_SYST 62; TEMP 99.9; O2SAT 94
[2023-12-29 13:17] VITALS: TEMP 100.2
[2023-12-29] MEDS: VANCOMYCIN HCL 750 MG, VIAL MATE ADAPTER 1 EACH in D5W 250 ML IV SCH (15:35)
[2023-12-29] MEDS: DOXYCYCLINE HYCLATE 100MG TABLET PO SCH (16:17)
[2023-12-29 16:30] VITALS: BP 127/61
[2023-12-29] MEDS: ACETAMINOPHEN 500 MG TAB PO SCH (17:48)
[2023-12-29 21:00] VITALS: BP 108/56; TEMP 97.9; O2SAT 96
[2023-12-30 05:07] VITALS: BP 138/72; TEMP 100.6; O2SAT 98
[2023-12-30 06:31] VITALS: TEMP 98.6
[2023-12-30 07:31] LABS: BASO % 0.5 % (0.0-1.0); EOS # 0.4 10^3/uL (0.0-0.5); EOS % 5.8 % (0.0-3.0); HEMATOCRIT 32.3 % (42.0-52.0); HEMOGLOBIN 11.3 g/dl (13.5-17.5); LYMPH # 0.2 10^3/uL (1.5-5.0); MEAN CORPUSCULAR HEMOGLOBIN 33.3 pg (27.0-33.0); MEAN CORPUSCULAR VOLUME 95.3 fl (80.0-96.0); MONO # 0.2 10^3/uL (0.0-0.8); NEUTROPHILS # 5.2 10^3/uL (1.5-8.5); NEUTROPHILS % 85.2 % (36.0-66.0); PLATELET COUNT, AUTOMATED 321 10^3/uL (150-450); RED BLOOD COUNT 3.39 10^6/uL (4.30-6.10); WHITE BLOOD COUNT 6.1 10^3/uL (4.0-10.0)
[2023-12-30 07:55] LABS: BLOOD UREA NITROGEN 6 MG/DL (9-23); CALCIUM LEVEL 7.9 MG/DL (8.3-10.6); CARBON DIOXIDE LEVEL 24 MMOL/L (20-31); CHLORIDE LEVEL 104 MMOL/L (98-107); CREATININE FOR GFR 0.64 MG/DL (0.70-1.30); GLOMERULAR FILTRATION RATE > 60.0 (>35); GLUCOSE, FASTING 109 MG/DL (74-106); MAGNESIUM LEVEL 1.8 MG/DL (1.8-2.4); POTASSIUM SERUM 3.9 MMOL/L (3.5-5.1); SODIUM LEVEL 134 MMOL/L (136-145)
[2023-12-30] MEDS: VANCOMYCIN HCL 500 MG in D5W MINI-BAG PLUS 100 ML IV ONE (10:53)
[2023-12-30 12:10] VITALS: BP 112/53; TEMP 97.5; O2SAT 94
[2023-12-30 20:14] VITALS: BP 133/63; TEMP 98.1; O2SAT 95
[2023-12-30] MEDS: VANCOMYCIN HCL 750 MG, VIAL MATE ADAPTER 1 EACH in D5W 250 ML IV SCH (20:34)
[2023-12-30] MEDS: VANCOMYCIN HCL 500 MG in D5W MINI-BAG PLUS 100 ML IV SCH (23:11)
[2023-12-31 04:00] VITALS: BP 118/57; TEMP 97.9; O2SAT 96
[2023-12-31 05:51] LABS: BASO % 0.5 % (0.0-1.0); EOS # 0.5 10^3/uL (0.0-0.5); EOS % 7.4 % (0.0-3.0); HEMATOCRIT 31.1 % (42.0-52.0); HEMOGLOBIN 11.1 g/dl (13.5-17.5); LYMPH # 0.5 10^3/uL (1.5-5.0); LYMPH % 7.9 % (24.0-44.0); MEAN CORPUSCULAR HEMOGLOBIN 33.8 pg (27.0-33.0); MEAN CORPUSCULAR HGB CONC 35.7 g/dl (32.0-36.5); MEAN CORPUSCULAR VOLUME 94.8 fl (80.0-96.0); MONO # 0.3 10^3/uL (0.0-0.8); MONO % 4.5 % (2.0-8.0); NEUTROPHILS # 4.9 10^3/uL (1.5-8.5); NEUTROPHILS % 79.2 % (36.0-66.0); PLATELET COUNT, AUTOMATED 296 10^3/uL (150-450); RED BLOOD COUNT 3.28 10^6/uL (4.30-6.10); WHITE BLOOD COUNT 6.2 10^3/uL (4.0-10.0)
[2023-12-31 06:17] LABS: BLOOD UREA NITROGEN 7 MG/DL (9-23); CALCIUM LEVEL 7.8 MG/DL (8.3-10.6); CARBON DIOXIDE LEVEL 24 MMOL/L (20-31); CHLORIDE LEVEL 105 MMOL/L (98-107); CREATININE FOR GFR 0.67 MG/DL (0.70-1.30); GLOMERULAR FILTRATION RATE > 60.0 (>35); GLUCOSE, FASTING 97 MG/DL (74-106); MAGNESIUM LEVEL 1.9 MG/DL (1.8-2.4); POTASSIUM SERUM 4.1 MMOL/L (3.5-5.1); SODIUM LEVEL 135 MMOL/L (136-145)
[2023-12-31 12:13] VITALS: BP 129/76; TEMP 97.4; O2SAT 96
[2023-12-31 20:03] VITALS: BP 121/73; TEMP 97.7; O2SAT 96
[2024-01-01 05:06] VITALS: BP 119/72; TEMP 97.7; O2SAT 100
[2024-01-01 06:44] LABS: BASO # 0.1 10^3/uL (0.0-0.2); BASO % 0.7 % (0.0-1.0); EOS # 0.6 10^3/uL (0.0-0.5); EOS % 7.3 % (0.0-3.0); HEMATOCRIT 32.7 % (42.0-52.0); HEMOGLOBIN 11.2 g/dl (13.5-17.5); LYMPH # 0.5 10^3/uL (1.5-5.0); LYMPH % 6.9 % (24.0-44.0); MEAN CORPUSCULAR HEMOGLOBIN 32.7 pg (27.0-33.0); MEAN CORPUSCULAR HGB CONC 34.3 g/dl (32.0-36.5); MEAN CORPUSCULAR VOLUME 95.6 fl (80.0-96.0); MONO # 0.5 10^3/uL (0.0-0.8); NEUTROPHILS # 5.9 10^3/uL (1.5-8.5); NEUTROPHILS % 78.6 % (36.0-66.0); PLATELET COUNT, AUTOMATED 339 10^3/uL (150-450); RED BLOOD COUNT 3.42 10^6/uL (4.30-6.10); WHITE BLOOD COUNT 7.6 10^3/uL (4.0-10.0)
[2024-01-01 07:11] LABS: BLOOD UREA NITROGEN 8 MG/DL (9-23); CALCIUM LEVEL 7.9 MG/DL (8.3-10.6); CARBON DIOXIDE LEVEL 23 MMOL/L (20-31); CHLORIDE LEVEL 103 MMOL/L (98-107); CREATININE FOR GFR 0.65 MG/DL (0.70-1.30); GLOMERULAR FILTRATION RATE > 60.0 (>35); GLUCOSE, FASTING 104 MG/DL (74-106); IMMUNOGLOBULIN A 52.1 MG/DL (40-350); IMMUNOGLOBULIN G 1239 MG/DL (650-1600); MAGNESIUM LEVEL 1.7 MG/DL (1.8-2.4); POTASSIUM SERUM 4.2 MMOL/L (3.5-5.1); SODIUM LEVEL 131 MMOL/L (136-145)
[2024-01-01 08:17] LABS: IMMUNOGLOBULIN E 11.9 IU/ML (0-378)
[2024-01-01] MEDS: ALPRAZolam 0.5 MG TAB PO ONE (09:39)
[2024-01-01 12:00] VITALS: BP 116/70; TEMP 97.7; O2SAT 95
[2024-01-01 19:02] LABS: CPK CREATINE PHOSPHOKINASE 97 U/L (46-171)
[2024-01-01 20:12] VITALS: BP 130/66; TEMP 97.7; O2SAT 97
[2024-01-01] MEDS: DAPTOmycin 750 MG in NS 50 ML IV SCH (21:56)
[2024-01-01] MEDS: ERTAPENEM SODIUM 1 GM in NS MINI-BAG PLUS 50 ML IV SCH (22:56)
[2024-01-02 00:11] VITALS: BP 131/68; TEMP 98.1; O2SAT 93
[2024-01-02] MEDS: ACETAMINOPHEN 500 MG TAB PO PRN (01:27)
[2024-01-02 04:10] VITALS: BP 104/56; TEMP 97.5; O2SAT 93
[2024-01-02] MEDS ORDERED: SODIUM CHLORIDE 0.9% INJ 10 ML SYR IV PRN (13:20)
[2024-01-02] MEDS: DAPTOmycin 750 MG in NS 50 ML IV ONE (18:26)
[2024-01-02] MEDS ORDERED: ERTA1INJ3 IV (18:32)
[2024-01-02] MEDS ORDERED: [UNRECOGNIZED DRUG - CODE] IV (18:35)
[2024-01-02] MEDS: SODIUM CHLORIDE 0.9% INJ 10 ML SYR IV SCH (19:25)
[2024-01-02] MEDS: ERTAPENEM SODIUM 1 GM in NS MINI-BAG PLUS 50 ML IV ONE (19:26)
[2024-01-02] MEDS: ATORVASTATIN 20 MG TAB PO SCH (20:42)
[2024-01-02 21:45] VITALS: BP 124/64; TEMP 98.4; O2SAT 95
[2024-01-02] MEDS: RAMELTEON 8 MG TAB (ROZEREM) PO PRN (23:05)
[2024-01-03 04:43] VITALS: BP 116/62; TEMP 98.1; O2SAT 95
[2024-01-03 06:01] LABS: HEMATOCRIT 33.3 % (42.0-52.0); HEMOGLOBIN 11.9 g/dl (13.5-17.5); MEAN CORPUSCULAR HEMOGLOBIN 33.5 pg (27.0-33.0); MEAN CORPUSCULAR HGB CONC 35.7 g/dl (32.0-36.5); MEAN CORPUSCULAR VOLUME 93.8 fl (80.0-96.0); PLATELET COUNT, AUTOMATED 371 10^3/uL (150-450); RED BLOOD COUNT 3.55 10^6/uL (4.30-6.10); WHITE BLOOD COUNT 6.4 10^3/uL (4.0-10.0)
[2024-01-03 06:23] LABS: Anaplasma phagocytophilum NOT DETECTED (NOT DETECT); Babesia microti NOT DETECTED (NOT DETECT); Ehrlichia chaffeensis NOT DETECTED (NOT DETECT)
[2024-01-03 11:00] VITALS: TEMP 99.8
[2024-01-03] MEDS: DAPTOmycin 750 MG in NS 50 ML IV ONE (11:34)
[2024-01-03] MEDS: ERTAPENEM SODIUM 1 GM in NS MINI-BAG PLUS 50 ML IV ONE (12:30)
[2024-01-03 12:37] VITALS: BP 99/55; TEMP 100.1; O2SAT 94
[2024-01-03 12:44] VITALS: BP 102/62
[2024-01-03 16:32] LABS: BORRELIA SPECIES DNA NOT DETECTED (NOT DETECT)
[2024-01-04] MEDS ORDERED: DAPTOmycin 750 MG in NS 50 ML IV SCH (09:00)
[2024-01-04] MEDS ORDERED: ERTAPENEM SODIUM 1 GM in NS MINI-BAG PLUS 50 ML IV SCH (10:00)
== END 2024-01-03 14:00 | disposition home health service (06) | DRG 552 ==
LOC: EDBD 08:12 → M ED 08:12 → M ED INP 16:11 → M PCU 17:03 → OBSVTOIN 12-27 10:47 → M MS5PR 12-28 00:18
PROVIDERS: ADMIT Internal Medicine; ATTEND General Practice
PROC: 02HV33Z Insertion of Infusion Device into Superior Vena Cava, Percutaneous Approach (ICD-10-PCS; principal; 2024-01-02)
DX: M46.46 Discitis, unspecified, lumbar region (principal); E87.1 Hypo-osmolality and hyponatremia; N39.0 Urinary tract infection, site not specified; J44.9 Chronic obstructive pulmonary disease, unspecified; E78.5 Hyperlipidemia, unspecified; I25.10 Atherosclerotic heart disease of native coronary artery without angina pectoris; E03.9 Hypothyroidism, unspecified; K59.00 Constipation, unspecified; I10 Essential (primary) hypertension; D47.2 Monoclonal gammopathy; K21.9 Gastro-esophageal reflux disease without esophagitis; B96.29 Other Escherichia coli [E. coli] as the cause of diseases classified elsewhere; R25.1 Tremor, unspecified; R33.9 Retention of urine, unspecified; Z95.2 Presence of prosthetic heart valve; E87.6 Hypokalemia; Z91.030 Bee allergy status; Z79.899 Other long term (current) drug therapy; Z79.82 Long term (current) use of aspirin; Z66 Do not resuscitate; K76.0 Fatty (change of) liver, not elsewhere classified; K80.20 Calculus of gallbladder without cholecystitis without obstruction; L08.9 Local infection of the skin and subcutaneous tissue, unspecified

== ENCOUNTER → 2024-01-09 | Outpatient (REF) | payer MEDICARE ==
[~2024-01-09] MED LIST changes: +ACET650T61 PO; +ERTA1INJ3 IV; +MULT-90 PO; +NITR100C2 PO; +POLY17PO18 PO; +VITA100T86 PO; +[UNRECOGNIZED DRUG - CODE] IV
[2024-01-09 15:37] LABS: BASO # 0.2 10^3/uL (0.0-0.2); BASO % 2.4 % (0.0-1.0); EOS # 0.9 10^3/uL (0.0-0.5); EOS % 11.6 % (0.0-3.0); HEMOGLOBIN 10.8 g/dl (13.5-17.5); LYMPH # 1.3 10^3/uL (1.5-5.0); LYMPH % 16.1 % (24.0-44.0); MEAN CORPUSCULAR HEMOGLOBIN 33.2 pg (27.0-33.0); MEAN CORPUSCULAR HGB CONC 33.8 g/dl (32.0-36.5); MEAN CORPUSCULAR VOLUME 98.5 fl (80.0-96.0); MONO # 0.7 10^3/uL (0.0-0.8); MONO % 8.2 % (2.0-8.0); NEUTROPHILS # 4.9 10^3/uL (1.5-8.5); PLATELET COUNT, AUTOMATED 521 10^3/uL (150-450); RED BLOOD COUNT 3.25 10^6/uL (4.30-6.10); WHITE BLOOD COUNT 8.1 10^3/uL (4.0-10.0)
[2024-01-09 15:52] LABS: ERYTHROCYTE SEDIMENTATION RATE 99 mm/hr (0-20)
[2024-01-09 16:01] LABS: CPK CREATINE PHOSPHOKINASE 64 U/L (46-171)
[2024-01-09 16:06] LABS: ALKALINE PHOSPHATASE 1000 U/L (46-116); ALT/SGPT 126 U/L (7.0-40); AST/SGOT 134 U/L (<34); BILIRUBIN,TOTAL 0.9 MG/DL (0.3-1.2); BLOOD UREA NITROGEN 10 MG/DL (9-23); CALCIUM LEVEL 8.6 MG/DL (8.3-10.6); CARBON DIOXIDE LEVEL 27 MMOL/L (20-31); CHLORIDE LEVEL 102 MMOL/L (98-107); CREATININE FOR GFR 0.55 MG/DL (0.70-1.30); GLOMERULAR FILTRATION RATE > 60.0 (>35); GLUCOSE, FASTING 81 MG/DL (74-106); POTASSIUM SERUM 4.6 MMOL/L (3.5-5.1); SODIUM LEVEL 136 MMOL/L (136-145); TOTAL PROTEIN 5.9 G/DL (5.7-8.2)
== END ==
LOC: M LAB REF 14:23
PROVIDERS: ATTEND Internal Medicine Infectious Disease
DX: M46.46 Discitis, unspecified, lumbar region (principal)

== ENCOUNTER → 2024-01-15 | Outpatient (CLI) | payer MEDICARE ==
[2024-01-15 15:37] LABS: BASO # 0.1 10^3/uL (0.0-0.2); BASO % 1.7 % (0.0-1.0); EOS # 0.4 10^3/uL (0.0-0.5); EOS % 5.2 % (0.0-3.0); HEMATOCRIT 34.9 % (42.0-52.0); HEMOGLOBIN 11.6 g/dl (13.5-17.5); LYMPH # 2.6 10^3/uL (1.5-5.0); LYMPH % 34.2 % (24.0-44.0); MEAN CORPUSCULAR HEMOGLOBIN 33.5 pg (27.0-33.0); MEAN CORPUSCULAR HGB CONC 33.2 g/dl (32.0-36.5); MEAN CORPUSCULAR VOLUME 100.9 fl (80.0-96.0); MONO # 0.8 10^3/uL (0.0-0.8); MONO % 10.1 % (2.0-8.0); NEUTROPHILS # 3.7 10^3/uL (1.5-8.5); NEUTROPHILS % 48.7 % (36.0-66.0); PLATELET COUNT, AUTOMATED 396 10^3/uL (150-450); RED BLOOD COUNT 3.46 10^6/uL (4.30-6.10); WHITE BLOOD COUNT 7.5 10^3/uL (4.0-10.0)
[2024-01-15 15:55] LABS: ERYTHROCYTE SEDIMENTATION RATE 120 mm/hr (0-20)
[2024-01-15 16:02] LABS: ALBUMIN 2.6 G/DL (3.2-5.2); ALKALINE PHOSPHATASE 627 U/L (46-116); ALT/SGPT 55 U/L (7.0-40); AST/SGOT 46 U/L (<34); BILIRUBIN,TOTAL 0.7 MG/DL (0.3-1.2); BLOOD UREA NITROGEN 11 MG/DL (9-23); CALCIUM LEVEL 8.8 MG/DL (8.3-10.6); CARBON DIOXIDE LEVEL 26 MMOL/L (20-31); CHLORIDE LEVEL 104 MMOL/L (98-107); CPK CREATINE PHOSPHOKINASE 96 U/L (46-171); CREATININE FOR GFR 0.68 MG/DL (0.70-1.30); GLOMERULAR FILTRATION RATE > 60.0 (>35); GLUCOSE, FASTING 82 MG/DL (74-106); POTASSIUM SERUM 4.3 MMOL/L (3.5-5.1); SODIUM LEVEL 135 MMOL/L (136-145); TOTAL PROTEIN 6.9 G/DL (5.7-8.2)
== END ==
LOC: M LAB 15:13
PROVIDERS: ATTEND Internal Medicine Infectious Disease
DX: M46.46 Discitis, unspecified, lumbar region (principal)

== ENCOUNTER → 2024-01-23 | Outpatient (REF) | payer MEDICARE ==
[2024-01-23 11:37] LABS: BASO # 0.1 10^3/uL (0.0-0.2); BASO % 0.8 % (0.0-1.0); EOS % 13.2 % (0.0-3.0); HEMATOCRIT 32.5 % (42.0-52.0); HEMOGLOBIN 10.8 g/dl (13.5-17.5); LYMPH # 0.8 10^3/uL (1.5-5.0); LYMPH % 10.1 % (24.0-44.0); MEAN CORPUSCULAR HEMOGLOBIN 33.4 pg (27.0-33.0); MEAN CORPUSCULAR HGB CONC 33.2 g/dl (32.0-36.5); MEAN CORPUSCULAR VOLUME 100.6 fl (80.0-96.0); MONO # 0.5 10^3/uL (0.0-0.8); MONO % 6.5 % (2.0-8.0); NEUTROPHILS # 5.4 10^3/uL (1.5-8.5); NEUTROPHILS % 69.1 % (36.0-66.0); PLATELET COUNT, AUTOMATED 269 10^3/uL (150-450); RED BLOOD COUNT 3.23 10^6/uL (4.30-6.10); WHITE BLOOD COUNT 7.8 10^3/uL (4.0-10.0)
[2024-01-23 11:45] LABS: ERYTHROCYTE SEDIMENTATION RATE 99 mm/hr (0-20)
[2024-01-23 12:03] LABS: ALBUMIN 2.3 G/DL (3.2-5.2); ALKALINE PHOSPHATASE 304 U/L (46-116); ALT/SGPT 29 U/L (7.0-40); AST/SGOT 29 U/L (<34); BILIRUBIN,TOTAL 0.7 MG/DL (0.3-1.2); BLOOD UREA NITROGEN 10 MG/DL (9-23); CALCIUM LEVEL 8.5 MG/DL (8.3-10.6); CARBON DIOXIDE LEVEL 25 MMOL/L (20-31); CHLORIDE LEVEL 102 MMOL/L (98-107); CREATININE FOR GFR 0.61 MG/DL (0.70-1.30); GLOMERULAR FILTRATION RATE > 60.0 (>35); GLUCOSE, FASTING 101 MG/DL (74-106); POTASSIUM SERUM 4.3 MMOL/L (3.5-5.1); SODIUM LEVEL 132 MMOL/L (136-145); TOTAL PROTEIN 6.2 G/DL (5.7-8.2)
== END ==
LOC: M LAB REF 10:34
PROVIDERS: ATTEND Internal Medicine Infectious Disease
DX: M46.46 Discitis, unspecified, lumbar region (principal)

== ENCOUNTER 2024-01-30 15:07 | Outpatient (CLI) | payer MEDICARE ==
[~2024-01-30] VITALS: Ht 170.2 cm; Wt 81.0 kg
[2024-01-30 15:40] VITALS: BP 141/61; O2SAT 96
[2024-01-30] MEDS: ALTEPLASE 2MG/2ML VIAL IV PRN (16:47)
[2024-01-30] MEDS: ERTAPENEM SODIUM 1 GM in NS MINI-BAG PLUS 50 ML IV ONE (18:51)
[2024-01-30] MEDS: ALTEPLASE 2MG/2ML VIAL IV ONE (19:35)
[2024-01-30] MEDS: DAPTOmycin 750 MG in NS 50 ML IV SCH (19:49)
[2024-01-30] MEDS ORDERED: SODIUM CHLORIDE 0.9% INJ 10 ML SYR IV PRN (20:30)
[2024-01-30 20:41] VITALS: BP 138/78; O2SAT 96
== END 2024-01-30 20:45 ==
LOC: M INFU 15:07
PROVIDERS: ATTEND Internal Medicine Infectious Disease
DX: T82.594A Other mechanical complication of infusion catheter, initial encounter (principal); Z91.030 Bee allergy status
CPT/HCPCS: 36593; 96365; 96366; 96367; J0878; J1335; J2997

== ENCOUNTER → 2024-01-30 | Outpatient (REF) | payer MEDICARE ==
[2024-01-30 12:19] LABS: BASO # 0.1 10^3/uL (0.0-0.2); BASO % 1.6 % (0.0-1.0); EOS # 0.5 10^3/uL (0.0-0.5); EOS % 8.3 % (0.0-3.0); HEMATOCRIT 32.5 % (42.0-52.0); HEMOGLOBIN 10.9 g/dl (13.5-17.5); LYMPH % 18.4 % (24.0-44.0); MEAN CORPUSCULAR HEMOGLOBIN 33.3 pg (27.0-33.0); MEAN CORPUSCULAR HGB CONC 33.5 g/dl (32.0-36.5); MEAN CORPUSCULAR VOLUME 99.4 fl (80.0-96.0); MONO # 0.5 10^3/uL (0.0-0.8); MONO % 8.7 % (2.0-8.0); NEUTROPHILS # 3.6 10^3/uL (1.5-8.5); NEUTROPHILS % 62.8 % (36.0-66.0); PLATELET COUNT, AUTOMATED 346 10^3/uL (150-450); RED BLOOD COUNT 3.27 10^6/uL (4.30-6.10); WHITE BLOOD COUNT 5.7 10^3/uL (4.0-10.0)
[2024-01-30 12:49] LABS: ERYTHROCYTE SEDIMENTATION RATE 95 mm/hr (0-20)
[2024-01-30 12:55] LABS: ALBUMIN 2.2 G/DL (3.2-5.2); ALKALINE PHOSPHATASE 232 U/L (46-116); ALT/SGPT 28 U/L (7.0-40); AST/SGOT 23 U/L (<34); BILIRUBIN,TOTAL 0.4 MG/DL (0.3-1.2); BLOOD UREA NITROGEN 7 MG/DL (9-23); CALCIUM LEVEL 8.7 MG/DL (8.3-10.6); CARBON DIOXIDE LEVEL 25 MMOL/L (20-31); CHLORIDE LEVEL 104 MMOL/L (98-107); CPK CREATINE PHOSPHOKINASE 34 U/L (46-171); CREATININE FOR GFR 0.59 MG/DL (0.70-1.30); GLOMERULAR FILTRATION RATE > 60.0 (>35); GLUCOSE, FASTING 93 MG/DL (74-106); POTASSIUM SERUM 4.3 MMOL/L (3.5-5.1); SODIUM LEVEL 137 MMOL/L (136-145); TOTAL PROTEIN 6.1 G/DL (5.7-8.2)
== END ==
LOC: M LAB REF 11:14
PROVIDERS: ATTEND Internal Medicine Infectious Disease
DX: M46.46 Discitis, unspecified, lumbar region (principal)

== ENCOUNTER → 2024-02-06 | Outpatient (REF) | payer MEDICARE ==
[2024-02-06 10:57] LABS: ALBUMIN 2.4 G/DL (3.2-5.2); ALKALINE PHOSPHATASE 214 U/L (46-116); ALT/SGPT 12 U/L (7.0-40); AST/SGOT 17 U/L (<34); BILIRUBIN,TOTAL 0.3 MG/DL (0.3-1.2); BLOOD UREA NITROGEN 9 MG/DL (9-23); CALCIUM LEVEL 8.9 MG/DL (8.3-10.6); CARBON DIOXIDE LEVEL 25 MMOL/L (20-31); CHLORIDE LEVEL 103 MMOL/L (98-107); CPK CREATINE PHOSPHOKINASE 36 U/L (46-171); CREATININE FOR GFR 0.57 MG/DL (0.70-1.30); GLOMERULAR FILTRATION RATE > 60.0 (>35); GLUCOSE, FASTING 91 MG/DL (74-106); POTASSIUM SERUM 4.3 MMOL/L (3.5-5.1); SODIUM LEVEL 137 MMOL/L (136-145); TOTAL PROTEIN 6.3 G/DL (5.7-8.2)
[2024-02-06 11:06] LABS: BASO # 0.1 10^3/uL (0.0-0.2); BASO % 1.1 % (0.0-1.0); EOS # 0.5 10^3/uL (0.0-0.5); EOS % 6.8 % (0.0-3.0); HEMATOCRIT 32.7 % (42.0-52.0); HEMOGLOBIN 11.2 g/dl (13.5-17.5); LYMPH # 1.1 10^3/uL (1.5-5.0); LYMPH % 14.2 % (24.0-44.0); MEAN CORPUSCULAR HEMOGLOBIN 33.9 pg (27.0-33.0); MEAN CORPUSCULAR HGB CONC 34.3 g/dl (32.0-36.5); MEAN CORPUSCULAR VOLUME 99.1 fl (80.0-96.0); MONO # 0.5 10^3/uL (0.0-0.8); MONO % 6.8 % (2.0-8.0); NEUTROPHILS # 5.2 10^3/uL (1.5-8.5); NEUTROPHILS % 70.7 % (36.0-66.0); PLATELET COUNT, AUTOMATED 426 10^3/uL (150-450); WHITE BLOOD COUNT 7.4 10^3/uL (4.0-10.0)
[2024-02-06 11:14] LABS: ERYTHROCYTE SEDIMENTATION RATE 86 mm/hr (0-20)
== END ==
LOC: M LAB REF 10:18
PROVIDERS: ATTEND Internal Medicine Infectious Disease
DX: M46.46 Discitis, unspecified, lumbar region (principal)

== ENCOUNTER → 2024-02-07 | Outpatient (CLI) | payer MEDICARE | LOC: M WHC 10:21 | PROVIDERS: ATTEND Internal Medicine Infectious Disease | DX: K80.20 Calculus of gallbladder without cholecystitis without obstruction (principal); K76.0 Fatty (change of) liver, not elsewhere classified; R79.89 Other specified abnormal findings of blood chemistry ==

== ENCOUNTER → 2024-02-08 | Outpatient (CLI) | payer MEDICARE | LOC: M PLARAD 11:41 | PROVIDERS: ATTEND Internal Medicine Infectious Disease | DX: M46.46 Discitis, unspecified, lumbar region (principal) ==

== ENCOUNTER → 2024-02-08 | Outpatient (CLI) | payer MEDICARE | LOC: M PLAIMG 13:28 | PROVIDERS: ATTEND Internal Medicine Infectious Disease | DX: S22.41XA Multiple fractures of ribs, right side, initial encounter for closed fracture (principal); R91.8 Other nonspecific abnormal finding of lung field; J90 Pleural effusion, not elsewhere classified; M46.46 Discitis, unspecified, lumbar region; X58.XXXA Exposure to other specified factors, initial encounter; Y92.9 Unspecified place or not applicable; Y93.9 Activity, unspecified; Y99.9 Unspecified external cause status ==

== ENCOUNTER → 2024-02-27 | Outpatient (REF) | payer MEDICARE ==
[2024-02-27 13:29] LABS: BASO # 0.1 10^3/uL (0.0-0.2); BASO % 1.5 % (0.0-1.0); EOS # 0.5 10^3/uL (0.0-0.5); EOS % 8.5 % (0.0-3.0); HEMATOCRIT 36.8 % (42.0-52.0); HEMOGLOBIN 12.2 g/dl (13.5-17.5); LYMPH # 1.5 10^3/uL (1.5-5.0); LYMPH % 25.4 % (24.0-44.0); MEAN CORPUSCULAR HGB CONC 33.2 g/dl (32.0-36.5); MEAN CORPUSCULAR VOLUME 99.5 fl (80.0-96.0); MONO # 0.5 10^3/uL (0.0-0.8); MONO % 8.6 % (2.0-8.0); NEUTROPHILS # 3.3 10^3/uL (1.5-8.5); NEUTROPHILS % 55.8 % (36.0-66.0); PLATELET COUNT, AUTOMATED 399 10^3/uL (150-450); WHITE BLOOD COUNT 5.9 10^3/uL (4.0-10.0)
[2024-02-27 13:52] LABS: ALBUMIN 2.7 G/DL (3.2-5.2); ALKALINE PHOSPHATASE 130 U/L (46-116); ALT/SGPT 29 U/L (7.0-40); AST/SGOT 22 U/L (<34); BILIRUBIN,TOTAL 0.2 MG/DL (0.3-1.2); BLOOD UREA NITROGEN 14 MG/DL (9-23); C REACTIVE PROTEIN QUANTITATIV < 0.40 MG/DL (<1.0); CALCIUM LEVEL 9.1 MG/DL (8.3-10.6); CARBON DIOXIDE LEVEL 30 MMOL/L (20-31); CHLORIDE LEVEL 105 MMOL/L (98-107); CREATININE FOR GFR 0.71 MG/DL (0.70-1.30); GLOMERULAR FILTRATION RATE > 60.0 (>35); GLUCOSE, FASTING 86 MG/DL (74-106); POTASSIUM SERUM 4.4 MMOL/L (3.5-5.1); SODIUM LEVEL 135 MMOL/L (136-145); TOTAL PROTEIN 6.7 G/DL (5.7-8.2)
[2024-02-27 14:06] LABS: ERYTHROCYTE SEDIMENTATION RATE 44 mm/hr (0-20)
== END ==
LOC: M LAB REF 12:48
PROVIDERS: ATTEND Internal Medicine Infectious Disease
DX: M46.46 Discitis, unspecified, lumbar region (principal)

== ENCOUNTER → 2024-03-21 | Outpatient (REF) | payer MEDICARE | LOC: M LAB REF 15:55 | PROVIDERS: ATTEND Surgery | DX: L72.0 Epidermal cyst (principal) ==

== ENCOUNTER → 2025-03-11 | Outpatient (REF) | payer MEDICARE ==
[~2025-03-11] MED LIST changes: -ADV250INH INH; +ADVA1AER9 INH
[2025-03-15 14:33] LABS: LYME TOTAL ANTIBODY CIA <= 0.90 Index (<=0.90)
== END ==
LOC: M LAB REF 17:51
PROVIDERS: ATTEND Physician Assistant Medical
DX: R68.84 Jaw pain (principal); R53.83 Other fatigue